=== PATIENT | female | born 1985 | race Caucasian/White ===

== ENCOUNTER 2016-09-12 04:28 | Emergency (ER) | payer MEDICAID, OTHER ==
[~2016-09-12 04:28] MED LIST: CEPH500C3 PO; DIFL500T PO; LEXA20TA PO; VENTAER INH
[2016-09-12 04:41] VITALS: BP 151/92; PULSE 85; RESP 18; TEMP 98.2; O2SAT 98
[2016-09-12 05:12] LABS: AUTOMATED NEUTROPHIL # 9.5 TH/MM3 (1.8-7.7); BASOPHIL # 0.1 TH/MM3 (0-0.2); BASOPHIL % 0.7 % (0.0-2.0); EOSINOPHIL % 0.1 % (0.0-4.0); HEMATOCRIT 42.5 % (35.0-46.0); HEMO FLAGS DIFF FINAL; LYMPH % 16.1 % (9.0-44.0); MEAN CELL VOLUME 91.8 FL (80.0-100.0); MEAN CORPUSCULAR HEMOGLOBIN 31.2 PG (27.0-34.0); MONO % 6.7 % (0.0-8.0); NEUT % 76.4 % (16.0-70.0); PLATELET COUNT 341 TH/MM3 (150-450); RED BLOOD COUNT 4.63 MIL/MM3 (4.00-5.30); RED CELL DISTRIBUTION WIDTH 13.3 % (11.6-17.2); WHITE BLOOD COUNT 12.4 TH/MM3 (4.0-11.0)
--- NOTE | 2016-09-12 05:21 | PD ---
HPI Chief Complaint: Psychiatric Symptoms Time Seen by Provider: 05:15 Travel History International Travel<30 days: No Contact w/Intl Traveler<30days: No Traveled to known affect area: No History of Present Illness HPI 31-year-old white female presents to emergency department under Aguilera act by . The patient initially had contacted PD to do a well person check on her mother. She states that she had not heard from her in some time. She is concerned because she is a diabetic. She states that she had been drinking all day. The patient states that she is unsure what had transpired but she had made a statement after arguing that she wanted to be with her father. According to the Aguilera act her father had over 10 years ago. The patient denies any suicidal ideation. No homicidal ideation. She denies any toxic ingestions. According to the Aguilera act in a discussion with the nurses there may be some substance abuse issues with the patient as well as family members. The patient here missed to marijuana but denies any other drugs. She has had a history of cutting in the past. She does suffer from depression. She is unsure of her last menstrual.. She denies any other medical complaints. [facility] Past Medical History Narrative Medical Asthma, depression, cutting Medical History: Unable to Obtain Asthma: Yes Cancer: No Diabetes: No Diminished Hearing: No Psychiatric: Yes Seizures: No Thyroid Disease: No Ulcer: No Tetanus Vaccination: > 5 Years ?: Not Past Surgical History Narrative Surgical Tonsillectomy, Surgical History: Unable to Obtain Other Surgery: No Social History Alcohol Use: Yes Tobacco Use: Yes (1/2 PPD) Substance Use: Yes (marijuana) Allergies-Medications (Allergen,Severity, Reaction): Coded Allergies: Pineapple (Verified Allergy, Severe, 09/12/16) ANAPHYLAXIS Reported Meds & Prescriptions Reported Meds & Active Scripts Active Active Prescriptions or Reported Medications Unobtainable Review of Systems Except as stated in HPI: all other systems reviewed are Neg Psychiatric: Positive: Mood Disorder, Substance Abuse, No: Anxiety, Depression , Suicidal Ideations, Disorder of Thought, Homicidal Ideation Physical Exam Narrative GENERAL: Well-nourished, well-developed patient. SKIN: Warm and dry. Old suicide gesture cutting to the wrists. HEAD: Normocephalic and atraumatic. EYES: No scleral icterus. No injection or drainage. ENT: No nasal drainage noted. Mucous membranes pink. Airway patent. NECK: Supple, trachea midline. Moves head freely without obvious discomfort. CARDIOVASCULAR: Regular rate and rhythm without murmurs, gallops, or rubs. RESPIRATORY: Breath sounds equal bilaterally. No accessory muscle use. GASTROINTESTINAL: Abdomen soft, non-tender, nondistended. EXTREMITIES: No cyanosis or edema. BACK: Nontender without obvious deformity. No CVA tenderness. NEURO: Patient is alert and oriented. no sensorimotor deficits. Nonfocal. Normal speech. PSYCH: No delusions. No auditory or visual hallucinations. Data Data Last Documented VS Vital Signs Date Time Temp Pulse Resp B/P Pulse Ox O2 Delivery O2 Flow Rate FiO2 09/12/16 04:41 98.2 85 18 151/92 98 Orders Complete Blood Count With Diff (09/12/16 04:35) Comprehensive Metabolic Panel (09/12/16 04:35) Psych Screen (09/12/16 04:35) Drug Screen, Random Urine (09/12/16 04:35) Alcohol (Ethanol) (09/12/16 04:35) Salicylates (Aspirin) (09/12/16 04:35) Tylenol (Acetaminophen) (09/12/16 04:35) Ed Urine Pregnancytest Poc (09/12/16 05:15) Labs Laboratory Tests Test 09/12/16 04:45 White Blood Count 12.4 TH/MM3 Red Blood Count 4.63 MIL/MM3 Hemoglobin 14.5 GM/DL Hematocrit 42.5 % Mean Corpuscular Volume 91.8 FL Mean Corpuscular Hemoglobin 31.2 PG Mean Corpuscular Hemoglobin 34.0 % Concent Red Cell Distribution Width 13.3 % Platelet Count 341 TH/MM3 Mean Platelet Volume 8.3 FL Neutrophils (%) (Auto) 76.4 % Lymphocytes (%) (Auto) 16.1 % Monocytes (%) (Auto) 6.7 % Eosinophils (%) (Auto) 0.1 % Basophils (%) (Auto) 0.7 % Neutrophils # (Auto) 9.5 TH/MM3 Lymphocytes # (Auto) 2.0 TH/MM3 Monocytes # (Auto) 0.8 TH/MM3 Eosinophils # (Auto) 0.0 TH/MM3 Basophils # (Auto) 0.1 TH/MM3 CBC Comment DIFF FINAL Differential Comment Sodium Level 141 MEQ/L Potassium Level 3.3 MEQ/L Chloride Level 107 MEQ/L Carbon Dioxide Level 23.1 MEQ/L Anion Gap 11 MEQ/L Blood Urea Nitrogen 8 MG/DL Creatinine 1.03 MG/DL Estimat Glomerular Filtration 63 ML/MIN Rate Random Glucose 106 MG/DL Calcium Level 8.5 MG/DL Total Bilirubin 0.5 MG/DL Aspartate Amino Transf 16 U/L (AST/SGOT) Alanine Aminotransferase 19 U/L (ALT/SGPT) Alkaline Phosphatase 58 U/L Total Protein 7.9 GM/DL Albumin 4.2 GM/DL Acetaminophen Level LESS THAN 2.0 MCG/ML Ethyl Alcohol Level LESS THAN 3 MG/DL MDM Medical Decision Making Medical Screen Exam Complete: Yes Emergency Medical Condition: Yes Medical Record Reviewed: Yes Interpretation(s) Laboratory Tests Test 09/12/16 04:45 White Blood Count 12.4 TH/MM3 Red Blood Count 4.63 MIL/MM3 Hemoglobin 14.5 GM/DL Hematocrit 42.5 % Mean Corpuscular Volume 91.8 FL Mean Corpuscular Hemoglobin 31.2 PG Mean Corpuscular Hemoglobin 34.0 % Concent Red Cell Distribution Width 13.3 % Platelet Count 341 TH/MM3 Mean Platelet Volume 8.3 FL Neutrophils (%) (Auto) 76.4 % Lymphocytes (%) (Auto) 16.1 % Monocytes (%) (Auto) 6.7 % Eosinophils (%) (Auto) 0.1 % Basophils (%) (Auto) 0.7 % Neutrophils # (Auto) 9.5 TH/MM3 Lymphocytes # (Auto) 2.0 TH/MM3 Monocytes # (Auto) 0.8 TH/MM3 Eosinophils # (Auto) 0.0 TH/MM3 Basophils # (Auto) 0.1 TH/MM3 CBC Comment DIFF FINAL Differential Comment Sodium Level 141 MEQ/L Potassium Level 3.3 MEQ/L Chloride Level 107 MEQ/L Carbon Dioxide Level 23.1 MEQ/L Anion Gap 11 MEQ/L Blood Urea Nitrogen 8 MG/DL Creatinine 1.03 MG/DL Estimat Glomerular Filtration 63 ML/MIN Rate Random Glucose 106 MG/DL Calcium Level 8.5 MG/DL Total Bilirubin 0.5 MG/DL Aspartate Amino Transf 16 U/L (AST/SGOT) Alanine Aminotransferase 19 U/L (ALT/SGPT) Alkaline Phosphatase 58 U/L Total Protein 7.9 GM/DL Albumin 4.2 GM/DL Acetaminophen Level LESS THAN 2.0 MCG/ML Ethyl Alcohol Level LESS THAN 3 MG/DL Differential Diagnosis MDM: High Differential diagnoses: Schizophrenia, schizoaffective disorder, bipolar, anxiety, depression, adjustment reaction, mood disorder NOS, ODD, depressive disorder NOS, dementia, dementia with agitation, psychosis NOS, substance induced mood disorder, intermittent explosive disorder, Asperger syndrome, infection,electrolyte abnormality, malingering. Narrative Course The patient has been medically cleared. This is medical clearance Diagnosis Primary Impression: Medical clearance for psychiatric admission Scripts Unable to Obtain Active Prescriptions or Reported Meds Condition: Tyler Lopez September 12, 2016 05:21
[2016-09-12 05:37] LABS: ANION GAP 11 MEQ/L (5-15)
[2016-09-12 05:40] LABS: ALKALINE PHOSPHATASE 58 U/L (45-117); ALT (GPT) 19 U/L (10-53); AST (GOT) 16 U/L (15-37); BICARBONATE 23.1 MEQ/L (21.0-32.0); BLOOD UREA NITROGEN 8 MG/DL (7-18); CHLORIDE 107 MEQ/L (98-107); GLOMERULAR FILTRATION RATE 63 ML/MIN (>89); POTASSIUM 3.3 MEQ/L (3.5-5.1); SODIUM (NA) 141 MEQ/L (136-145); TOTAL BILIRUBIN ADULT 0.5 MG/DL (0.2-1.0)
[2016-09-12 05:42] LABS: ACETAMINOPHEN LESS THAN 2.0 MCG/ML (10.0-30.0)
[2016-09-12 06:00] VITALS: BP 131/76; PULSE 85; RESP 18; O2SAT 98
[2016-09-12 10:11] VITALS: BP 120/72; PULSE 68; TEMP 97.6; O2SAT 98
[2016-09-12 12:32] LABS: AMPHETAMINE, URINE NEG (NEG); BARBITURATES, URINE NEG (NEG); COCAINE, URINE POS (NEG)
[2016-09-12] MEDS ORDERED: NICOTINE 14 MG/24 HR PATCH T-DERMAL ONE (13:30)
--- NOTE | 2016-09-12 15:05 | PD ---
History of Present Illness Chief Complaint: Psychiatric Symptoms Time Seen by Provider: 15:00 Travel History International Travel<30 Days: No Contact w/Intl Traveler<30days: No Known affected area: No Legal Status Legal Status: Aguilera Act Aguilera Act Signed By: Marco Antonio Aguilera Act Comment: BA signed by: ALEXANDER FORRESTER Badge#[id number], case#[id number] History of Present Illness: 31-year-old female who presents with drug intoxication, including cocaine, Aguilera acted by law enforcement. Patient states she called law enforcement to check on her mother. Patient states that she and her mother have a up-and-down relationship. Mother told law enforcement the patient has a drug problem. At this time the patient is no longer intoxicated. She is calm and pleasant and cooperative. No psychotic symptoms. No suicidal or homicidal ideation, plan or intent. Cognition intact. Patient verbally yonatan for safety. PFSH Past Medical History Medical History: Denies Significant Hx Asthma: Yes Cancer: No Diabetes: No Diminished Hearing: No Psychiatric: Yes Seizures: No Thyroid Disease: No Ulcer: No Tetanus Vaccination: > 5 Years ?: Not Past Surgical History Surgical History: Unable to Obtain Other Surgery: No Psychiatric History Psychiatric History Hx Psychiatric Treatment: Admits to a hx of depression when she was 19y/o History of Inpatient Treatment: Yes Social History Hx Alcohol Use: Yes Hx Tobacco Use: Yes (1/2 PPD) Hx Substance Use: No (Denies) Substance Use Type: Alcohol Other Substances Used: admits to drinking etoh and smoking marijuana Hx of Substance Use Treatment: No Allergies-Medications (Allergen,Severity, Reaction): Coded Allergies: Pineapple (Verified Allergy, Severe, 09/12/16) ANAPHYLAXIS Reported Meds & Prescriptions Reported Meds & Active Scripts Active Active Prescriptions or Reported Medications Unobtainable Review of Systems Except as stated in HPI: all other systems reviewed are Neg Exam Alert: Yes Loc[place] Gap: Person, Place, Date, Situation Mood: Calm Affect: Appropriate Speech: Clear, Logical Eye Contact: Normal Memory Intact: Immediate, Recent, Remote Insight/Judgement Adequate except for drug use. MDM Medical Decision Making Medical Record Reviewed: Yes Assessment/Plan Aguilera act lifted and patient being discharged home. She does not meet civil commitment criteria or inpatient psychiatric hospitalization criteria. She was asked to the cyst from drug abuse and to attend NA meetings. Orders Complete Blood Count With Diff (09/12/16 04:35) Comprehensive Metabolic Panel (09/12/16 04:35) Psych Screen (09/12/16 04:35) Drug Screen, Random Urine (09/12/16 04:35) Alcohol (Ethanol) (09/12/16 04:35) Salicylates (Aspirin) (09/12/16 04:35) Tylenol (Acetaminophen) (09/12/16 04:35) Ed Urine Pregnancytest Poc (09/12/16 05:15) Nicotine 14 Mg Patch.24 Hr (Habitrol 14 (09/12/16 13:30) Diet Regular Basic (09/12/16 Dinner) Results Vital Signs Date Time Temp Pulse Resp B/P Pulse Ox O2 Delivery O2 Flow Rate FiO2 09/12/16 10:11 97.6 68 120/72 98 09/12/16 06:00 85 18 131/76 98 Room Air 09/12/16 04:41 98.2 85 18 151/92 98 Laboratory Tests Test 09/12/16 09/12/16 04:45 11:50 White Blood Count 12.4 Red Blood Count 4.63 Hemoglobin 14.5 Hematocrit 42.5 Mean Corpuscular Volume 91.8 Mean Corpuscular Hemoglobin 31.2 Mean Corpuscular Hemoglobin 34.0 Concent Red Cell Distribution Width 13.3 Platelet Count 341 Mean Platelet Volume 8.3 Neutrophils (%) (Auto) 76.4 Lymphocytes (%) (Auto) 16.1 Monocytes (%) (Auto) 6.7 Eosinophils (%) (Auto) 0.1 Basophils (%) (Auto) 0.7 Neutrophils # (Auto) 9.5 Lymphocytes # (Auto) 2.0 Monocytes # (Auto) 0.8 Eosinophils # (Auto) 0.0 Basophils # (Auto) 0.1 CBC Comment DIFF FINAL Differential Comment Sodium Level 141 Potassium Level 3.3 Chloride Level 107 Carbon Dioxide Level 23.1 Anion Gap 11 Blood Urea Nitrogen 8 Creatinine 1.03 Estimat Glomerular Filtration 63 Rate Random Glucose 106 Calcium Level 8.5 Total Bilirubin 0.5 Aspartate Amino Transf 16 (AST/SGOT) Alanine Aminotransferase 19 (ALT/SGPT) Alkaline Phosphatase 58 Total Protein 7.9 Albumin 4.2 Acetaminophen Level LESS THAN 2.0 Ethyl Alcohol Level LESS THAN 3 Urine Opiates Screen NEG Urine Barbiturates Screen NEG Urine Amphetamines Screen NEG Urine Benzodiazepines Screen NEG Urine Cocaine Screen POS Urine Cannabinoids Screen POS Diagnosis Primary Impression: Medical clearance for psychiatric admission Additional Impression: Cocaine abuse Prescriptions Unable to Obtain Active Prescriptions or Reported Meds Condition: Stable Problem Qualifiers Abdiel Trinidad MD September 12, 2016 15:05
== END 2016-09-12 16:45 | disposition home or self-care (01) ==
LOC: NEPD 04:28 → NEPJ 16:45
DX: F14.920 Cocaine use, unspecified with intoxication, uncomplicated (principal); F17.210 Nicotine dependence, cigarettes, uncomplicated; F32.9 Major depressive disorder, single episode, unspecified; F12.90 Cannabis use, unspecified, uncomplicated; F10.10 Alcohol abuse, uncomplicated
CPT/HCPCS: 80053; 80307; 85025; 99284

== ENCOUNTER 2016-10-26 22:17 | Emergency (ER) | payer MEDICAID, OTHER ==
[~2016-10-26] VITALS: Ht 157.5 cm; Wt 62.0 kg
[2016-10-26 22:30] VITALS: BP 118/75; PULSE 77; RESP 17; TEMP 98.9; O2SAT 99
--- NOTE | 2016-10-26 23:05 | PD ---
HPI Chief Complaint: Psychiatric Symptoms Time Seen by Provider: 22:41 Travel History International Travel<30 days: No Contact w/Intl Traveler<30days: No Traveled to known affect area: No History of Present Illness HPI This is a 31-year-old female who has a history of cocaine abuse who presents to the emergency department having been brought in under a Aguilera act by the police because she got in an argument with her family and they're concerned about her well-being because she disappeared into the cartwright for 4 days. She says she was just going camping and wanted to clear her head because thinking about getting a divorce. She says she doesn't use cocaine "that much". She does acknowledge using cocaine 2 days ago. Her family is concerned that she disappeared and the cartwright and was using drugs. She currently denies any thoughts of hurting herself or others but she does have a history of depression in the past per her. PFSH Past Medical History Asthma: Yes Cancer: No Diabetes: No Diminished Hearing: No Psychiatric: Yes Seizures: No Thyroid Disease: No Ulcer: No ?: Unknown Past Surgical History Abdominal Surgery: Yes Tonsillectomy: Yes Other Surgery: Yes (l wrist) Social History Alcohol Use: Yes Tobacco Use: Yes (1/2 PPD) Substance Use: Yes (marijuana/cocaine) Allergies-Medications (Allergen,Severity, Reaction): Coded Allergies: Pineapple (Verified Allergy, Severe, 10/26/16) ANAPHYLAXIS Reported Meds & Prescriptions Reported Meds & Active Scripts Active No Active Prescriptions or Reported Medications Review of Systems Except as stated in HPI: all other systems reviewed are Neg Physical Exam Narrative GENERAL:Well appearing, no acute distress SKIN: Focused skin assessment warm and dry. HEAD: Atraumatic. Normocephalic. EYES: Pupils equal and round. No injection or drainage. ENT: Moist mucous membranes NECK: Trachea midline. CARDIOVASCULAR: Regular rate and rhythm. No murmur appreciated. RESPIRATORY: Clear to auscultation. Breath sounds equal bilaterally. GASTROINTESTINAL: Abdomen soft, non-tender, nondistended. MUSCULOSKELETAL: No obvious deformities. NEUROLOGICAL: Awake and alert. No obvious cranial nerve deficits. Moving all extremities. PSYCHIATRIC: Appropriate mood and affect; insight and judgment normal. Data Data Last Documented VS Vital Signs Date Time Temp Pulse Resp B/P Pulse Ox O2 Delivery O2 Flow Rate FiO2 10/26/16 22:40 17 10/26/16 22:30 98.9 77 118/75 99 Orders Complete Blood Count With Diff (10/26/16 22:47) Basic Metabolic Panel (Bmp) (10/26/16 22:47) Drug Screen, Random Urine (10/26/16 22:47) Ed Urine Pregnancytest Poc (10/26/16 22:47) Alcohol (Ethanol) (10/26/16 22:47) Nicotine 14 Mg Patch.24 Hr (Habitrol 14 (10/26/16 23:30) Urinalysis - C+S If Indicated (10/26/16 23:52) Urine Culture (10/26/16 22:57) Labs Laboratory Tests Test 10/26/16 10/26/16 22:51 22:57 White Blood Count 16.4 TH/MM3 Red Blood Count 4.86 MIL/MM3 Hemoglobin 15.2 GM/DL Hematocrit 45.1 % Mean Corpuscular Volume 92.9 FL Mean Corpuscular Hemoglobin 31.3 PG Mean Corpuscular Hemoglobin 33.7 % Concent Red Cell Distribution Width 13.8 % Platelet Count 385 TH/MM3 Mean Platelet Volume 8.2 FL Neutrophils (%) (Auto) 69.9 % Lymphocytes (%) (Auto) 20.7 % Monocytes (%) (Auto) 8.5 % Eosinophils (%) (Auto) 0.2 % Basophils (%) (Auto) 0.7 % Neutrophils # (Auto) 11.4 TH/MM3 Lymphocytes # (Auto) 3.4 TH/MM3 Monocytes # (Auto) 1.4 TH/MM3 Eosinophils # (Auto) 0.0 TH/MM3 Basophils # (Auto) 0.1 TH/MM3 CBC Comment DIFF FINAL Differential Comment Sodium Level 140 MEQ/L Potassium Level 3.6 MEQ/L Chloride Level 107 MEQ/L Carbon Dioxide Level 25.0 MEQ/L Anion Gap 8 MEQ/L Blood Urea Nitrogen 9 MG/DL Creatinine 0.90 MG/DL Estimat Glomerular Filtration 74 ML/MIN Rate Random Glucose 84 MG/DL Calcium Level 9.3 MG/DL Ethyl Alcohol Level LESS THAN 3 MG/DL Urine Opiates Screen NEG Urine Barbiturates Screen NEG Urine Amphetamines Screen NEG Urine Benzodiazepines Screen NEG Urine Cocaine Screen POS Urine Cannabinoids Screen POS Urine Color YELLOW Urine Turbidity HAZY Urine pH 6.0 Urine Specific [place] 1.016 Urine Protein 100 mg/dL Urine Glucose (UA) NEG mg/dL Urine Ketones NEG mg/dL Urine Occult Blood NEG Urine Nitrite NEG Urine Bilirubin NEG Urine Urobilinogen LESS THAN 2.0 MG/DL Urine Leukocyte Esterase NEG Urine RBC 2 /hpf Urine WBC 6 /hpf Urine Squamous Epithelial 9 /hpf Cells Urine Amorphous Sediment RARE Urine Bacteria MOD /hpf Urine Hyaline Casts 25 /lpf Urine Granular Casts 1 /lpf Urine Mucus MOD /lpf Microscopic Urinalysis Comment CULTURE INDICATED MDM Medical Decision Making Medical Screen Exam Complete: Yes Emergency Medical Condition: Yes Interpretation(s) Afebrile, no tachycardia, normotensive Leukocytosis Electrolytes are reassuring Urinalysis: Some white blood cells and moderate bacteria Urine drug screen is positive for cocaine and cannabinoid Differential Diagnosis Drug intoxication, alcohol intoxication, electrolyte abnormality, depression, bipolar disorder Narrative Course This is a 31-year-old female who was brought in under a Aguilera act because she was evidently being violent with her family and evidently disappeared for 4 days into the cartwright. Patient seems to have some impaired judgment and insight. Labs were obtained which demonstrate a leukocytosis and she does a urinary tract infection. She was started on Macrobid. Otherwise I think she is medically cleared for psychiatry evaluation. Diagnosis Primary Impression: Urinary tract infection Qualified Code: N30.00 - Acute cystitis without hematuria Patient Instructions: General Instructions Additional Instructions: If you develop fever, persistent vomiting, back pain, or inability to eat return to the emergency department as your urine infection may have progressed to a kidney infection. Complete your antibiotics as prescribed. Stay well hydrated with Gatorade or water. Followup with your primary care physician in 2-3 days if your symptoms have not resolved. Med/Other Pt SpecificInfo: Prescription(s) given Scripts Nitrofurantoin Monohydrate Macrocrystals (Macrobid)100 Mg [id number] Mg PO BID 7 Days Ref 0 Prov:Daxa Lock MD 10/27/16 Disposition: 01 DISCHARGE HOME Condition: Stable Daxa Lock MD Oct 26, 2016 23:05
[2016-10-26 23:13] LABS: AMPHETAMINE, URINE NEG (NEG); BARBITURATES, URINE NEG (NEG); COCAINE, URINE POS (NEG)
[2016-10-26 23:20] LABS: AUTOMATED NEUTROPHIL # 11.4 TH/MM3 (1.8-7.7); BASOPHIL # 0.1 TH/MM3 (0-0.2); BASOPHIL % 0.7 % (0.0-2.0); EOSINOPHIL % 0.2 % (0.0-4.0); HEMATOCRIT 45.1 % (35.0-46.0); HEMO FLAGS DIFF FINAL; LYMPH % 20.7 % (9.0-44.0); LYMPHOCYTE # 3.4 TH/MM3 (1.0-4.8); MEAN CELL VOLUME 92.9 FL (80.0-100.0); MEAN CORPUSCULAR HEMOGLOBIN 31.3 PG (27.0-34.0); MEAN CORPUSCULAR HGB CONC 33.7 % (32.0-36.0); MONO % 8.5 % (0.0-8.0); NEUT % 69.9 % (16.0-70.0); PLATELET COUNT 385 TH/MM3 (150-450); RED BLOOD COUNT 4.86 MIL/MM3 (4.00-5.30); RED CELL DISTRIBUTION WIDTH 13.8 % (11.6-17.2); WHITE BLOOD COUNT 16.4 TH/MM3 (4.0-11.0)
[2016-10-26] MEDS ORDERED: NICOTINE 14 MG/24 HR PATCH T-DERMAL ONE (23:30)
[2016-10-26 23:36] LABS: ANION GAP 8 MEQ/L (5-15); BLOOD UREA NITROGEN 9 MG/DL (7-18); CHLORIDE 107 MEQ/L (98-107); GLOMERULAR FILTRATION RATE 74 ML/MIN (>89); POTASSIUM 3.6 MEQ/L (3.5-5.1); SODIUM (NA) 140 MEQ/L (136-145)
[2016-10-27 00:18] LABS: BACTERIA, URINE MOD /hpf; BLOOD, URINE NEG (NEG); COMMENT (UR) CULTURE INDICATED; CULTURE IF INDICATED CULTURE INDICATED; GLUCOSE,URINE NEG (NEG); GRANULAR CAST, URINE 1 /lpf; HYALINE CAST, URINE 25 /lpf (RARE); KETONE, URINE NEG (NEG); MUCUS URINE MOD /lpf (OCC); NITRITE,URINE NEG (NEG); SQUAMOUS EPITHELIAL CELL URINE 9 /hpf (0-5); URINE COLOR YELLOW (YELLW/STRAW)
[2016-10-27] MEDS ORDERED: MACR100C2 PO (00:25)
[2016-10-27] MEDS: NITROFURANTOIN MONOHYD MACROCR 100 MG CAP PO SCH ×2 (00:40→09:00)
[2016-10-27 01:26] VITALS: BP 111/71; PULSE 77; RESP 18; O2SAT 100
[2016-10-27 02:16] VITALS: BP 102/51; PULSE 63; RESP 18; TEMP 97.5; O2SAT 100
[2016-10-27 06:00] VITALS: BP 116/67; PULSE 61; RESP 18; TEMP 95.9; O2SAT 100
[2016-10-27 11:46] VITALS: BP 110/60; PULSE 81; RESP 16; O2SAT 100
--- NOTE | 2016-10-27 14:20 | PD ---
History of Present Illness Chief Complaint: Psychiatric Symptoms Time Seen by Provider: 14:00 Travel History International Travel<30 Days: No Contact w/Intl Traveler<30days: No Known affected area: No Legal Status Legal Status: Aguilera Act Aguilera Act Signed By: Marco Antonio Sage Aguilera Act Comment: 2016 @ 0930PM History of Present Illness: History of Present Illness HPI This is a 31-year-old female with a history of cocaine abuse who presents to the emergency department under a Aguilera act initiated by ALEXANDER . The BA alleges that patient came home today and was acting abnormal and irate towards them. Patient had returned from a 4 day camping trip and family suspects that she was under the influence of cocaine. The patient never verbalized any intent to hurt herself or any one else. EMR is reviewed. Patient has one previous admission to [facility] in 2003. She was also placed under a BA in september 2016 after she was intoxicated and believed that her mother was hurt. Current toxicology is positive for cocaine and cannabinoid. Patient is seen in J pod. She is alert and oriented and is clinically sober now. Speech is cler and logical. There is no psychosis and no marcos. There is no significant depression or anxiety. She denies any suicidal or homicidals ideation. she minimizes her substance use. She plans on moving to another apartment and her will leave the home for a few days. PFSH Past Medical History Asthma: Yes Cancer: No Diabetes: No Diminished Hearing: No Psychiatric: Yes Seizures: No Thyroid Disease: No Ulcer: No ?: Unknown Past Surgical History Abdominal Surgery: Yes Tonsillectomy: Yes Other Surgery: Yes (l wrist) Psychiatric History Psychiatric History Hx Psychiatric Treatment: DENIES any tretametn History of Inpatient Treatment: Yes ([facility] at age 18 yeras old) Social History Hx Alcohol Use: Yes Hx Tobacco Use: Yes (1/2 PPD) Hx Substance Use: Yes (marijuana/cocaine) Substance Use Type: Alcohol, Marijuana, Cocaine Other Substances Used: admits to drinking etoh and smoking marijuana Hx of Substance Use Treatment: No Family Psychiatric History Negative Allergies-Medications (Allergen,Severity, Reaction): Coded Allergies: Pineapple (Verified Allergy, Severe, 10/26/16) ANAPHYLAXIS Reported Meds & Prescriptions Reported Meds & Active Scripts Active Macrobid (Nitrofurantoin Monoh/Nitrofur Macro) 100 Mg Cap 100 Mg PO BID 7 Days Review of Systems Except as stated in HPI: all other systems reviewed are Neg Immunologic/allergic: COMPLAINS OF: Urticaria (bites on her back) Psychiatric: DENIES: Anxiety, Confusion, Mood changes, Depression, Hallucinations, Agitation, Suicidal Ideation, Homicidal Ideation, Delusions Exam Alert: Yes [place]: Person (ox4) Affect: Appropriate Speech: Clear, Logical Eye Contact: Normal Memory Intact: Comment (no impairmetn) Hallucinations: Other (negative) Delusions: No Suicidal: Ideation (deneis any) Homicidal: Ideation (deneis any) Insight/Judgement Poor. Not impaired. MDM Medical Decision Making Medical Record Reviewed: Yes Assessment/Plan 31 year old female with primary dx of cocaine abuse who is under a BA. the patient presents no psychiatric symptoms, no suicidality or homicidality.She is clear from substance now and does not meet criteria for BA. She minimizes her use of cocaine. I have lifted the BA. Psychoeducation provided. Discharge to self. Recommend abstinence. Orders Complete Blood Count With Diff (10/26/16 22:47) Basic Metabolic Panel (Bmp) (10/26/16 22:47) Drug Screen, Random Urine (10/26/16 22:47) Ed Urine Pregnancytest Poc (10/26/16 22:47) Alcohol (Ethanol) (10/26/16 22:47) Nicotine 14 Mg Patch.24 Hr (Habitrol 14 (10/26/16 23:30) Urinalysis - C+S If Indicated (10/26/16 23:52) Urine Culture (10/26/16 22:57) Nitrofurantoin Monohyd Macrocr (Macrobid (10/27/16 00:30) Psych Screen (10/27/16 01:19) Diet Regular Basic (10/27/16 Breakfast) Diet Regular Basic (10/27/16 Lunch) Results Vital Signs Date Time Temp Pulse Resp B/P Pulse Ox O2 Delivery O2 Flow Rate FiO2 10/27/16 11:46 81 16 110/60 100 Room Air 10/27/16 06:00 95.9 61 18 116/67 100 10/27/16 02:16 97.5 63 18 102/51 100 10/27/16 01:26 77 18 111/71 100 10/26/16 22:40 17 10/26/16 22:30 98.9 77 17 118/75 99 Laboratory Tests Test 10/26/16 10/26/16 22:51 22:57 White Blood Count 16.4 Red Blood Count 4.86 Hemoglobin 15.2 Hematocrit 45.1 Mean Corpuscular Volume 92.9 Mean Corpuscular Hemoglobin 31.3 Mean Corpuscular Hemoglobin 33.7 Concent Red Cell Distribution Width 13.8 Platelet Count 385 Mean Platelet Volume 8.2 Neutrophils (%) (Auto) 69.9 Lymphocytes (%) (Auto) 20.7 Monocytes (%) (Auto) 8.5 Eosinophils (%) (Auto) 0.2 Basophils (%) (Auto) 0.7 Neutrophils # (Auto) 11.4 Lymphocytes # (Auto) 3.4 Monocytes # (Auto) 1.4 Eosinophils # (Auto) 0.0 Basophils # (Auto) 0.1 CBC Comment DIFF FINAL Differential Comment Sodium Level 140 Potassium Level 3.6 Chloride Level 107 Carbon Dioxide Level 25.0 Anion Gap 8 Blood Urea Nitrogen 9 Creatinine 0.90 Estimat Glomerular Filtration 74 Rate Random Glucose 84 Calcium Level 9.3 Ethyl Alcohol Level LESS THAN 3 Urine Opiates Screen NEG Urine Barbiturates Screen NEG Urine Amphetamines Screen NEG Urine Benzodiazepines Screen NEG Urine Cocaine Screen POS Urine Cannabinoids Screen POS Urine Color YELLOW Urine Turbidity HAZY Urine pH 6.0 Urine Specific [place] 1.016 Urine Protein 100 Urine Glucose (UA) NEG Urine Ketones NEG Urine Occult Blood NEG Urine Nitrite NEG Urine Bilirubin NEG Urine Urobilinogen LESS THAN 2.0 Urine Leukocyte Esterase NEG Urine RBC 2 Urine WBC 6 Urine Squamous Epithelial 9 Cells Urine Amorphous Sediment RARE Urine Bacteria MOD Urine Hyaline Casts 25 Urine Granular Casts 1 Urine Mucus MOD Microscopic Urinalysis Comment CULTURE INDICATED Date/Time Procedure Status Source Growth 10/26/16 22:57 Urine Culture - Preliminary Resulted Urine Clean Catch RESULTS PENDING Diagnosis Primary Impression: Urinary tract infection Additional Impression: Cocaine abuse Psychiatrically Cleared: Yes Patient Instructions: General Instructions Additional Instructions: If you develop fever, persistent vomiting, back pain, or inability to eat return to the emergency department as your urine infection may have progressed to a kidney infection. Complete your antibiotics as prescribed. Stay well hydrated with Gatorade or water. Followup with your primary care physician in 2-3 days if your symptoms have not resolved. Prescriptions Nitrofurantoin Monohydrate Macrocrystals (Macrobid)100 Mg [id number] Mg PO BID 7 Days Ref 0 Prov:Daxa Lock MD 10/27/16 Disposition: 01 DISCHARGE HOME Condition: Stable Problem Qualifiers Primary Impression: Urinary tract infection Qualified Code: N30.00 - Acute cystitis without hematuria Margaret Galvez Oct 27, 2016 14:19
[2016-10-27 14:28] VITALS: BP 110/60; PULSE 81; RESP 16; O2SAT 100
== END 2016-10-27 19:31 | disposition home or self-care (01) ==
LOC: NEPD 22:17 → NEPJ 10-27 19:31
DX: N39.0 Urinary tract infection, site not specified (principal); F14.10 Cocaine abuse, uncomplicated; J45.909 Unspecified asthma, uncomplicated; F17.200 Nicotine dependence, unspecified, uncomplicated
CPT/HCPCS: 80048; 80307; 81001; 84703; 85025; 87086; 99284

== ENCOUNTER 2017-12-25 10:42 | Observation (INO) ==
--- NOTE | 2017-12-25 11:42 | ED ---
HPI General Chief Complaint: Medical Clearance Stated Complaint: Psych eval / med clearance / VCSO Time Seen by Provider: 12/25/17 11:17 Source: patient Mode of arrival: ambulatory Limitations: altered mental status History of Present Illness HPI Narrative: Patient is lethargic and arouses to noxious stimuli. 32-year- old female arrives via EMS under Aguilera act. According to the Aguilera act report the deputy observed the patient was unable to stand up without assistance, hold her head up, and keep her eyes open. The patient stated she saw no point in trying because she was just going to end up back in long-term and wanted to kill herself. The patient advised the officer that she had taken 12 Xanax. According to the triage note the patient had admitted to taking 12 Xanax, 2 oxycodone, 40 beers in the past 12-24 hours. On my examination the patient denies suicidal ideation. She says that she was just "caught up in the moment. " Denies that this was an attempt to harm herself. Denies homicidal ideations. Tells me that she is also taking Suboxone. Denies chest pain, shortness of breath, abdominal pain, nausea, vomiting. Symptoms are moderate to severe in severity. Aggravated by toxic ingestion. No known relieving factors. No treatments tried. Onset unknown. Duration unknown. According to the medical record the patient has history of colitis, heart attack, asthma. She reports history of low blood pressure. Allergies to pineapple. Has no other medical complaints. No other modifying factors or associated signs and symptoms. Related Data Previous Rx's Medication Instructions Recorded famotidine 10 mg PO BID #60 tab 12/26/17 nicotine 1 patch TRANSDERMAL DAILY #7 ea 12/26/17 Allergies Allergy/AdvReac Type Severity Reaction Status Date / Time pineapple Allergy Severe Anaphylaxis Verified 12/25/17 11:56 Review of Systems ROS: all other systems reviewed are negative [facility] Medical History Medical History Asthma (Acute) delivery delivered (Acute) Colitis (Acute) Heart attack (Acute) Family History Family History Other Osteoarthritis Social History Social History Substance History: Active Abuse Second Hand Smoke Exposure: Yes Smoking Status: Current every day smoker Tobacco Type: Cigarettes How Often Do You Have a Drink Containing Alcohol: 2 to 3 times a week Substance Abuse Detail Marijuana: Substance Use Status: Early Remission Route Used Substance Abuse: Inhalation Crack/Cocaine: Substance Use Status: Early Remission Immunization History Tetanus Immunization: <5 Years Exam Narrative Exam Narrative: GENERAL: Well-nourished, well-developed female patient , in no acute distress; lethargic and arouses to noxious stimuli SKIN: Warm and dry. HEAD: Atraumatic. Normocephalic. EYES: Pupils equal and round at 5 mm with brisk reaction. PERRLA. ENT: Mucosa pink and moist. NECK: Supple. Trachea midline. CARDIOVASCULAR: Regular rate and rhythm. No murmur appreciated. RESPIRATORY: No accessory muscle use. Clear to auscultation. Breath sounds equal bilaterally. GASTROINTESTINAL: Abdomen soft, non-tender, nondistended. Hepatic and splenic margins not palpable. Bowel sounds are active 4 quadrants. MUSCULOSKELETAL: No obvious deformities. No clubbing. No cyanosis. No edema. BACK: No CVA tenderness. NEUROLOGICAL: Lethargic. Arouses to noxious stimuli. No obvious cranial nerve deficits. Motor grossly within normal limits. Slurred speech. Moves all extremities. 5/5 strength to all extremities. PSYCHIATRIC: No delusional thought processes. No hallucinations. Course Initial Documented Vital Signs Temperature 98.2 F 12/25/17 10:50 Pulse Rate 93 H 12/25/17 10:50 Respiratory Rate 14 12/25/17 10:50 Blood Pressure 118/86 12/25/17 10:50 Pulse Oximetry 100 12/25/17 10:50 Last Documented Vital Signs Temperature 98.5 F 12/26/17 16:00 Pulse Rate 68 12/26/17 16:00 Respiratory Rate 18 12/26/17 16:00 Blood Pressure 115/67 12/26/17 16:00 Pulse Oximetry 100 12/26/17 16:00 Medical Decision Making SARAH Attestation SARAH supervised visit: Yes Attestation: I, Dr. Rouse, have reviewed the advance practice practitioner's documentation and am in agreement, met with the patient face to face, made the diagnosis, and the medical decision making was done by me. *My assessment and Findings: I evaluated this patient. The nurse was with me. She is 4-1/2 hours later still slurring words and groggy and altered from her overdose. She is hypotensive without tachycardia consistent with narcotic overdose. Going to place a second IV and give her 2 L of saline and attempt Santo catheter placement to monitor urine output with the patient is fairly uncooperative and likely will be to resistive to get this done. She will require medical admission. Psychiatry will be consulted. Hopefully we can get her pressure up a bit and not require intensive care or pressor support. I think her hypotension will gradually resolve as her body metabolizes the narcotics MDM Narrative Medical decision making narrative: Patient presents under a Aguilera act. Physical examination and vital signs are essentially unremarkable. Patient has no medical complaints to report. Psych screen has been ordered. If the laboratory results are unremarkable, the patient will be medically cleared for psychiatric evaluation and disposition. 1521: Patient BP 85/53. Dr. Rouse evaluated the patient and recommended 2 L NS bolus and insert Santo to monitor urine output. Orders entered. 1620: BP 93/52. Call placed for patient admission. I talked with PARAM West and report given for patient admission. Medical Screen Exam Complete: Yes Emergency Medical Condition: Yes Differential Diagnosis Differential Diagnosis: Drug overdose, benzodiazepine abuse, alcohol abuse, suicidal intent, medical clearance for psychiatric evaluation Lab Data Result diagrams: 12/26/17 04:07 12/26/17 04:07 POC Results POC Urine Results Negative Lab Results 12/25/17 12/25/17 12/25/17 Range/Units 11:51 11:51 11:51 WBC 8.4 (4.0-11.0) th/mm3 RBC 4.13 (4.00-5.30) mil/mm3 Hgb 13.5 (11.6-15.3) gm/dL Hct 38.5 (35.0-46.0) % MCV 93.2 (80.0-100.0) fL MCH 32.8 (27.0-34.0) pg MCHC 35.2 (32.0-36.0) % RDW 12.5 (11.6-17.2) % Plt Count 291 (150-450) th/mm3 MPV 8.4 (7.0-11.0) fL Neut % (Auto) 54.7 (16.0-70.0) % Lymph % (Auto) 33.8 (9.0-44.0) % [place] % (Auto) 9.7 H (0.0-8.0) % Eos % (Auto) 0.8 (0.0-4.0) % Baso % (Auto) 1.0 (0.0-2.0) % Neut # (Auto) 4.6 (1.8-7.7) th/mm3 Lymph # (Auto) 2.8 (1.0-4.8) th/mm3 [place] # (Auto) 0.8 (0.0-0.9) th/mm3 Eos # (Auto) 0.1 (0.0-0.4) th/mm3 Baso # (Auto) 0.1 (0.0-0.2) th/mm3 WBC Differential . Differential Comment Auto diff final Sodium 139 (136-145) meq/L Potassium 3.1 L (3.5-5.1) meq/L Chloride 104 (98-107) meq/L Carbon Dioxide 22.0 (21.0-32.0) meq/L Anion Gap 13 (5-15) meq/L BUN 13 (7-18) mg/dL Creatinine 0.59 (0.50-1.00) mg/dL Estimated GFR Greater than 89 (>89) mL/min Random Glucose 96 (74-106) mg/dL Calcium 9.0 (8.5-10.1) mg/dL Total Bilirubin 1.2 H (0.2-1.0) mg/dL AST 20 (15-37) U/L ALT 26 (10-53) U/L Alkaline Phosphatase 46 (45-117) U/L Total Protein 8.0 (6.4-8.2) g/dL Albumin 4.6 (3.4-5.0) g/dL TSH 0.960 (0.358-3.740) uIU/mL Urine Color (Yellw/Straw) Urine Clarity (Clear) Urine pH (5.0-8.5) Ur Specific [place] (1.002-1.035) Urine Protein (Neg-Trace) mg/dL Urine Glucose (UA) (Negative) mg/dL Urine Ketones (Negative) mg/dL Urine Occult Blood (Negative) Urine Nitrate (Negative) Urine Bilirubin (Negative) Urine Urobilinogen (Less than 2) mg/dL Ur Leukocyte Esterase (Negative) Urine RBC (0-3) /hpf Urine WBC (0-5) /hpf Ur Squamous Epith Cells (0-5) /hpf Urine Bacteria (None) /hpf Urine Mucus (Occasional) /lpf Micro UA Comment Ur Microscopic Review Urine Culture Comments Salicylates 2.4 L (2.8-20.0) mg/dL Urine Opiates Screen (Neg) Acetaminophen Less than 2.0 L (10.0-30.0) mcg/mL Ur Barbiturates Screen (Neg) Ur Amphetamines Screen (Neg) U Benzodiazepines Scrn (Neg) Urine Cocaine Screen (Neg) U Cannabinoids Screen (Neg) Serum Alcohol Less than 3 (0-5) mg/dL 12/25/17 12/25/17 12/26/17 Range/Units 11:51 11:51 04:07 WBC 6.9 (4.0-11.0) th/mm3 RBC 3.58 L (4.00-5.30) mil/mm3 Hgb 11.6 (11.6-15.3) gm/dL Hct 34.3 L (35.0-46.0) % MCV 95.9 (80.0-100.0) fL MCH 32.5 (27.0-34.0) pg MCHC 33.9 (32.0-36.0) % RDW 12.4 (11.6-17.2) % Plt Count 215 (150-450) th/mm3 MPV 7.9 (7.0-11.0) fL Neut % (Auto) 39.1 (16.0-70.0) % Lymph % (Auto) 49.2 H (9.0-44.0) % [place] % (Auto) 8.6 H (0.0-8.0) % Eos % (Auto) 2.1 (0.0-4.0) % Baso % (Auto) 1.0 (0.0-2.0) % Neut # (Auto) 2.7 (1.8-7.7) th/mm3 Lymph # (Auto) 3.4 (1.0-4.8) th/mm3 [place] # (Auto) 0.6 (0.0-0.9) th/mm3 Eos # (Auto) 0.1 (0.0-0.4) th/mm3 Baso # (Auto) 0.1 (0.0-0.2) th/mm3 WBC Differential . Differential Comment Auto diff final Sodium (136-145) meq/L Potassium (3.5-5.1) meq/L Chloride (98-107) meq/L Carbon Dioxide (21.0-32.0) meq/L Anion Gap (5-15) meq/L BUN (7-18) mg/dL Creatinine (0.50-1.00) mg/dL Estimated GFR (>89) mL/min Random Glucose (74-106) mg/dL Calcium (8.5-10.1) mg/dL Total Bilirubin (0.2-1.0) mg/dL AST (15-37) U/L ALT (10-53) U/L Alkaline Phosphatase (45-117) U/L Total Protein (6.4-8.2) g/dL Albumin (3.4-5.0) g/dL TSH (0.358-3.740) uIU/mL Urine Color Yellow (Yellw/Straw) Urine Clarity Cloudy H (Clear) Urine pH 6.0 (5.0-8.5) Ur Specific [place] 1.016 (1.002-1.035) Urine Protein Negative (Neg-Trace) mg/dL Urine Glucose (UA) Negative (Negative) mg/dL Urine Ketones Trace H (Negative) mg/dL Urine Occult Blood Small H (Negative) Urine Nitrate Negative (Negative) Urine Bilirubin Negative (Negative) Urine Urobilinogen 4 or greater (Less than 2) mg/dL Ur Leukocyte Esterase Trace H (Negative) Urine RBC 2 (0-3) /hpf Urine WBC 2 (0-5) /hpf Ur Squamous Epith Cells 130 (0-5) /hpf Urine Bacteria Occasional H (None) /hpf Urine Mucus Few H (Occasional) /lpf Micro UA Comment Culture not ind Ur Microscopic Review Not Reportable Urine Culture Comments Culture not ind Salicylates (2.8-20.0) mg/dL Urine Opiates Screen Neg (Neg) Acetaminophen (10.0-30.0) mcg/mL Ur Barbiturates Screen Neg (Neg) Ur Amphetamines Screen Neg (Neg) U Benzodiazepines Scrn Pos H (Neg) Urine Cocaine Screen Pos H (Neg) U Cannabinoids Screen Pos H (Neg) Serum Alcohol (0-5) mg/dL 12/26/17 Range/Units 04:07 WBC (4.0-11.0) th/mm3 RBC (4.00-5.30) mil/mm3 Hgb (11.6-15.3) gm/dL Hct (35.0-46.0) % MCV (80.0-100.0) fL MCH (27.0-34.0) pg MCHC (32.0-36.0) % RDW (11.6-17.2) % Plt Count (150-450) th/mm3 MPV (7.0-11.0) fL Neut % (Auto) (16.0-70.0) % Lymph % (Auto) (9.0-44.0) % [place] % (Auto) (0.0-8.0) % Eos % (Auto) (0.0-4.0) % Baso % (Auto) (0.0-2.0) % Neut # (Auto) (1.8-7.7) th/mm3 Lymph # (Auto) (1.0-4.8) th/mm3 [place] # (Auto) (0.0-0.9) th/mm3 Eos # (Auto) (0.0-0.4) th/mm3 Baso # (Auto) (0.0-0.2) th/mm3 WBC Differential Differential Comment Sodium 144 (136-145) meq/L Potassium 3.9 D (3.5-5.1) meq/L Chloride 114 H D (98-107) meq/L Carbon Dioxide 22.6 (21.0-32.0) meq/L Anion Gap 7 (5-15) meq/L BUN 10 (7-18) mg/dL Creatinine 0.48 L (0.50-1.00) mg/dL Estimated GFR Greater than 89 (>89) mL/min Random Glucose 78 (74-106) mg/dL Calcium 7.7 L D (8.5-10.1) mg/dL Total Bilirubin 0.6 (0.2-1.0) mg/dL AST 53 H (15-37) U/L ALT 48 (10-53) U/L Alkaline Phosphatase 43 L (45-117) U/L Total Protein 5.8 L D (6.4-8.2) g/dL Albumin 3.2 L D (3.4-5.0) g/dL TSH (0.358-3.740) uIU/mL Urine Color (Yellw/Straw) Urine Clarity (Clear) Urine pH (5.0-8.5) Ur Specific [place] (1.002-1.035) Urine Protein (Neg-Trace) mg/dL Urine Glucose (UA) (Negative) mg/dL Urine Ketones (Negative) mg/dL Urine Occult Blood (Negative) Urine Nitrate (Negative) Urine Bilirubin (Negative) Urine Urobilinogen (Less than 2) mg/dL Ur Leukocyte Esterase (Negative) Urine RBC (0-3) /hpf Urine WBC (0-5) /hpf Ur Squamous Epith Cells (0-5) /hpf Urine Bacteria (None) /hpf Urine Mucus (Occasional) /lpf Micro UA Comment Ur Microscopic Review Urine Culture Comments Salicylates (2.8-20.0) mg/dL Urine Opiates Screen (Neg) Acetaminophen (10.0-30.0) mcg/mL Ur Barbiturates Screen (Neg) Ur Amphetamines Screen (Neg) U Benzodiazepines Scrn (Neg) Urine Cocaine Screen (Neg) U Cannabinoids Screen (Neg) Serum Alcohol (0-5) mg/dL Imaging Data Radiologist's impression: Head CT 12/25/17 11:41 CONCLUSION: 1. No acute intracranial abnormality. . Discharge Plan Discharge Disposition Patient Disposition: 30 Still Patient Discharge Condition Condition: Stable Discharge Order Discharge Orders: Discharge Order (Routine); Ordered 12/26/17 Ordered By: Abe Christine Physicians Team ED Provider: William Rouse ED Midlevel Provider: Esperanza Simms Primary Care Provider: UNKNOWN, Attending Provider: Yovany Metcalf Other Providers: Nigel Hernandez Status ED Status: Left Department Discharge Information Discharge Date/Time: 12/25/17 18:54
[2017-12-25] MEDS ORDERED: Sod Chloride 0.9% Inj 1,000 ML IV.SIG SCH ×3 (11:45→15:30)
[2017-12-25 12:23] LABS: Baso # (Auto) 0.1 th/mm3 (0.0-0.2); Eos # (Auto) 0.1 th/mm3 (0.0-0.4); Eos % (Auto) 0.8 % (0.0-4.0); Hematocrit 38.5 % (35.0-46.0); Hemoglobin 13.5 gm/dL (11.6-15.3); Lymph # (Auto) 2.8 th/mm3 (1.0-4.8); Lymph % (Auto) 33.8 % (9.0-44.0); Mean Corpuscular HGB Conc 35.2 % (32.0-36.0); Mean Corpuscular Hemoglobin 32.8 pg (27.0-34.0); Mean Corpuscular Volume 93.2 fL (80.0-100.0); Mean Platelet Volume 8.4 fL (7.0-11.0); Mono # (Auto) 0.8 th/mm3 (0.0-0.9); Mono % (Auto) 9.7 % (0.0-8.0); Neut # (Auto) 4.6 th/mm3 (1.8-7.7); Neut % (Auto) 54.7 % (16.0-70.0); Platelet Count 291 th/mm3 (150-450); Red Blood Count 4.13 mil/mm3 (4.00-5.30); Red Cell Distribution Width 12.5 % (11.6-17.2); White Blood Count 8.4 th/mm3 (4.0-11.0)
--- NOTE | 2017-12-25 12:40 | CT ---
EXAM DATE: 12/25/2017 12:30 PM EDT AGE/SEX: 32 years / Female INDICATIONS: Altered mental status CLINICAL DATA: This is the patient's initial encounter. Patient reports that signs and symptoms have been present for 1 day and indicates a pain score of Nonresponsive. MEDICAL/SURGICAL HISTORY: Asthma. colitis heart attack None. RADIATION DOSE: 34 CTDI (mGy) COMPARISON: No prior exams available for comparison. TECHNIQUE: CT of the head without contrast. Using automated exposure control and adjustment of the mA and/or kV according to patient size, radiation dose was kept as low as reasonably achievable to ob tain optimal diagnostic quality images. DICOM format image data is available electronically for revi ew and comparison. FINDINGS: Cerebrum: The ventricles are normal for age. No evidence of midline shift, mass lesion, hemorrhage or acute infarction. No extraaxial fluid collections are seen. Bilateral lacunes in temporal lobes l ikely vascular channels. Posterior Fossa: The cerebellum and brainstem are intact. The 4th ventricle is midline. The cerebe llopontine angle is unremarkable. Extracranial: The visualized portion of the orbits is intact. Skull: The calvaria is intact. No evidence of skull fracture. CONCLUSION: 1. No acute intracranial abnormality. . Electronically signed by: Mookie Cid MD 12/25/2017 12:38 PM EDT
[2017-12-25 12:46] LABS: Albumin 4.6 g/dL (3.4-5.0); Anion Gap 13 meq/L (5-15); Aspartate Aminotransferase 20 U/L (15-37); Blood Urea Nitrogen 13 mg/dL (7-18); Chloride 104 meq/L (98-107); Glomerular Filtration Rate Greater Than 89 mL/min (>89); Glucose,Random 96 mg/dL (74-106); Potassium 3.1 meq/L (3.5-5.1); Sodium 139 meq/L (136-145)
[2017-12-25 12:47] LABS: Alanine Aminotransferase 26 U/L (10-53)
[2017-12-25 12:49] LABS: Bacteria,Urine Occasional /hpf; Bilirubin,Urine Negative (Negative); Clarity,Urine Cloudy (Clear); Color,Urine Yellow (Yellw/Straw); Glucose,Urine (UA) Negative (Negative); Leukocyte Esterase,Urine Trace (Negative); Mucus,Urine Few /lpf (Occasional); Nitrite,Urine Negative (Negative); Specific Gravity,Urine 1.016 (1.002-1.035); Squamous Epithelial Cell,Urine 130 /hpf (0-5); Urobilinogen,Urine 4 or Greater mg/dL (Less than 2)
[2017-12-25 12:57] LABS: Alkaline Phosphatase 46 U/L (45-117)
[2017-12-25 13:00] LABS: Amphetamine Screen,Urine Neg (Neg); Barbiturate Screen,Urine Neg (Neg); Cannabinoid Screen,Urine Pos (Neg); Cocaine Screen,Urine Pos (Neg)
[2017-12-25 13:02] LABS: Opiate Screen,Urine Neg (Neg)
--- NOTE | 2017-12-25 13:30 | P.PNPSY ---
I attempted to screen this patient once she was medically cleared, however, I was unable to wake her. Her nurse reported that she only awakens, albeit briefly , to a sternal rub.
--- NOTE | 2017-12-25 16:32 | P.HPIM ---
History of Present Illness Primary Care Physician: UNKNOWN History of Present Illness: Mrs. Senior is a 32 year old female. She is brought to the hospital under a Aguilera Act and reportedly took 12 Xanax, Oxycodone, and Alcohol. Lethargy is present. Additionally she was hypotensive, which has improved with treatment in the ER. UDS is positive for Cocaine and Cannabinoids in addition to the already substances. She can provide a good history due to lethargy. Review of Systems unobtainable due to mental condition, unobtainable due to mental status PMFSH - History History Provided By: Patient - Medical History Medical History: Medical History (Last Reviewed 12/25/17 @ 11:43 by HEATHER Oneill) Asthma delivery delivered Colitis Heart attack - Family History Family History: Family History (Last Updated 12/25/17 @ 16:28 by Zhou Banegas MD) Other Osteoarthritis - Tobacco History Tobacco Use In Past 30 Days: Yes Smoking Status: Current every day smoker Tobacco Type: Cigarettes - Alcohol History How Often Do You Have a Drink Containing Alcohol: 2 to 3 times a week - Substance Use History Substance History: Past History - Substance Use Type Marijuana Status: Early Remission Route Used: Inhalation Crack/Cocaine Status: Early Remission - Travel History Recent Travel in the [place] Within the Last 8 Weeks: No Recent Travel Out of the Country Within the Last 8 Weeks: No - Immunization History Tetanus Immunization: <5 Years Medications and Allergies Active Medications: Active Medications Sodium Chloride (Ns Inj) 1,000 mls @ 0 mls/hr IV.SIG BOLUS PRECIOUS Last Admin: 12/25/17 11:54 Dose: 1,000 mls/hr Sodium Chloride (Ns Inj) 1,000 mls @ 0 mls/hr IV.SIG BOLUS PRECIOUS Last Admin: 12/25/17 13:38 Dose: 1,000 mls/hr Sodium Chloride (Ns Inj) 1,000 mls @ 0 mls/hr IV.SIG BOLUS PRECIOUS Stop: 12/26/17 15:31 Allergies Allergy/AdvReac Type Severity Reaction Status Date / Time pineapple Allergy Severe Anaphylaxis Verified 12/25/17 11:56 Home Medications Medication Instructions Recorded Confirmed Type No Known Home Medications 12/25/17 12/25/17 History Exam Vital signs: Vital Signs 12/25/17 10:50 12/25/17 11:56 12/25/17 13:00 Temperature 98.2 F Pulse Rate 93 H 90 76 Respiratory Rate 14 18 16 Blood Pressure 118/86 112/76 95/61 L Pulse Oximetry 100 99 99 12/25/17 14:00 12/25/17 15:00 Temperature Pulse Rate 70 60 Respiratory Rate 16 16 Blood Pressure 57/52 L 85/53 L Pulse Oximetry 99 99 Intake & Output 12/24/17 12/25/17 12/25/17 18:59 06:59 18:59 Weight 52.163 kg Narrative: GENERAL: NAD, A&Ox0, lethargic HEAD: Normocephalic. NECK: Supple, trachea midline. No lymphadenopathy. EYES: No scleral icterus. No injection or drainage. CARDIOVASCULAR: Regular rate and rhythm without murmurs, gallops, or rubs. RESPIRATORY: Breath sounds equal bilaterally. No accessory muscle use. GASTROINTESTINAL: Abdomen soft, non-tender, nondistended. MUSCULOSKELETAL: No cyanosis, or edema. SKIN: Warm and dry. NEURO: No focal neurological deficits. Results - Labs CBC & Chem 7: 12/25/17 11:51 12/25/17 11:51 Labs: Short CBC 12/25/17 Range/Units 11:51 WBC 8.4 (4.0-11.0) th/mm3 Hgb 13.5 (11.6-15.3) gm/dL Hct 38.5 (35.0-46.0) % Plt Count 291 (150-450) th/mm3 BMP 12/25/17 11:51 Sodium 139 Potassium 3.1 L Chloride 104 Carbon Dioxide 22.0 BUN 13 Creatinine 0.59 Calcium 9.0 Liver Function 12/25/17 Range/Units 11:51 Total Bilirubin 1.2 H (0.2-1.0) mg/dL AST 20 (15-37) U/L ALT 26 (10-53) U/L Alkaline Phosphatase 46 (45-117) U/L Albumin 4.6 (3.4-5.0) g/dL Urine 12/25/17 Range/Units 11:51 Urine Color Yellow (Yellw/Straw) Urine Clarity Cloudy H (Clear) Urine pH 6.0 (5.0-8.5) Ur Specific [place] 1.016 (1.002-1.035) Urine Protein Negative (Neg-Trace) mg/dL Urine Glucose (UA) Negative (Negative) mg/dL - Imaging Impressions Head CT 12/25/17 11:41 CONCLUSION: 1. No acute intracranial abnormality. . Caprini VTE Risk Assessment Caprini VTE Risk Assessment: No/Low Risk (score <= 1) Caprini Risk Assessment Model: Point Value = 1 Point Value = 2 Point Value = 3 Point Value = 5 Age 41-60 Minor surgery BMI > 25 kg/m2 Swollen legs Varicose veins or History of unexplained or recurrent spontaneous Oral contraceptives or hormone replacement Sepsis (< 1 month) Serious lung disease, including pneumonia (< 1 month) Abnormal pulmonary function Acute myocardial infarction Congestive heart failure (< 1 month) History of inflammatory bowel disease Medical patient at bed rest Age 61-74 Arthroscopic surgery Major open surgery (> 45 min) Laparoscopic surgery (> 45 min) Malignancy Confined to bed (> 72 hours) Immobilizing plaster cast Central venous access Age >= 75 History of VTE Family history of VTE Factor V Leiden Prothrombin [id number] Lupus anticoagulant Anticardiolipin antibodies Elevated serum homocysteine Heparin-induced thrombocytopenia Other congenital or acquired thrombophilia Stroke (< 1 month) Elective arthroplasty Hip, pelvis, or leg fracture Acute spinal cord injury (< 1 month) Prophylaxis Regimen: Total Risk Factor Score Risk Level Prophylaxis Regimen 0-1 Low Early ambulation 2 Moderate Order ONE of the following: *Sequential Compression Device (SCD) *Heparin 5000 units SQ BID 3-4 Higher Order ONE of the following medications: *Heparin 5000 units SQ TID *Enoxaparin/Lovenox 40 mg SQ daily (WT < 150 kg, CrCl > 30 mL/min) *Enoxaparin/Lovenox 30 mg SQ daily (WT < 150 kg, CrCl > 10-29 mL/min) *Enoxaparin/Lovenox 30 mg SQ BID (WT < 150 kg, CrCl > 30 mL/min) AND/OR *Sequential Compression Device (SCD) 5 or more Highest Order ONE of the following medications: *Heparin 5000 units SQ TID (Preferred with Epidurals) *Enoxaparin/Lovenox 40 mg SQ daily (WT < 150 kg, CrCl > 30 mL/min) *Enoxaparin/Lovenox 30 mg SQ daily (WT < 150 kg, CrCl > 10-29 mL/min) *Enoxaparin/Lovenox 30 mg SQ BID (WT < 150 kg, CrCl > 30 mL/min) AND *Sequential Compression Device (SCD) Assessment and Plan - Plan 32-year-old female admitted secondary to drug overdose, under Aguilera act. Drug overdose Xanax overdose Opioid abuse Cocaine abuse Marijuana abuse Alcohol abuse Avoid substance abuse IV hydration Monitor clinically Monitor for withdrawals Follow LFTs Aguilera act status Overdose Psychiatry consulted Hypotension Improved with fluid boluses IV hydration Monitor for any recurrence Asthma History of colitis History of old [place] History of [place] suspicious for drug abuse etiology These conditions are asymptomatic Follow clinically DVT prophylaxis SCDs
[2017-12-25] MEDS: Sod Chloride 0.9% Inj 1,000 ML IV.CONT SCH (17:37)
[2017-12-26 04:51] LABS: Baso # (Auto) 0.1 th/mm3 (0.0-0.2); Eos # (Auto) 0.1 th/mm3 (0.0-0.4); Eos % (Auto) 2.1 % (0.0-4.0); Hematocrit 34.3 % (35.0-46.0); Hemoglobin 11.6 gm/dL (11.6-15.3); Lymph # (Auto) 3.4 th/mm3 (1.0-4.8); Lymph % (Auto) 49.2 % (9.0-44.0); Mean Corpuscular HGB Conc 33.9 % (32.0-36.0); Mean Corpuscular Hemoglobin 32.5 pg (27.0-34.0); Mean Corpuscular Volume 95.9 fL (80.0-100.0); Mean Platelet Volume 7.9 fL (7.0-11.0); Mono # (Auto) 0.6 th/mm3 (0.0-0.9); Mono % (Auto) 8.6 % (0.0-8.0); Neut # (Auto) 2.7 th/mm3 (1.8-7.7); Neut % (Auto) 39.1 % (16.0-70.0); Platelet Count 215 th/mm3 (150-450); Red Blood Count 3.58 mil/mm3 (4.00-5.30); Red Cell Distribution Width 12.4 % (11.6-17.2); White Blood Count 6.9 th/mm3 (4.0-11.0)
[2017-12-26 05:22] LABS: Alanine Aminotransferase 48 U/L (10-53); Albumin 3.2 g/dL (3.4-5.0); Alkaline Phosphatase 43 U/L (45-117); Anion Gap 7 meq/L (5-15); Aspartate Aminotransferase 53 U/L (15-37); Blood Urea Nitrogen 10 mg/dL (7-18); Calcium 7.7 mg/dL (8.5-10.1); Carbon Dioxide 22.6 meq/L (21.0-32.0); Chloride 114 meq/L (98-107); Glomerular Filtration Rate Greater Than 89 mL/min (>89); Glucose,Random 78 mg/dL (74-106); Potassium 3.9 meq/L (3.5-5.1); Sodium 144 meq/L (136-145); Total Protein 5.8 g/dL (6.4-8.2)
[2017-12-26] MEDS: Sod Chloride 0.9% Inj 1,000 ML IV.CONT SCH ×3 (08:05→17:02)
--- NOTE | 2017-12-26 08:53 | P.PN ---
Physical Exam Vital signs: Vital Signs 12/25/17 10:50 12/25/17 11:56 12/25/17 13:00 Temperature 98.2 F Pulse Rate 93 H 90 76 Respiratory Rate 14 18 16 Blood Pressure 118/86 112/76 95/61 L Pulse Oximetry 100 99 99 12/25/17 14:00 12/25/17 15:00 12/25/17 17:30 Temperature 97.7 F Pulse Rate 70 60 71 Respiratory Rate 16 16 18 Blood Pressure 57/52 L 85/53 L 110/66 Pulse Oximetry 99 99 100 12/25/17 20:00 12/26/17 00:00 12/26/17 04:00 Temperature 98.2 F 98.1 F 98.2 F Pulse Rate 88 81 64 Respiratory Rate 20 20 20 Blood Pressure 113/75 125/88 100/59 L Pulse Oximetry 100 100 100 Intake & Output 12/25/17 12/26/17 12/26/17 18:59 06:59 18:59 Intake Total 1999 540 / 540 Balance 1999 540 / 540 Weight 52.163 kg 52.16 kg Intake: IV 1999 NS Inj 1,000 ML @ Wide Open IV. 1999 SIG BOLUS PRECIOUS Rx#:[id number] Oral 540 / 540 Other: # Voids 5 Date of Last Bowel Movement 12/24/17 12/25/17 Results - Labs CBC & Chem 7: 12/26/17 04:07 12/26/17 04:07 Laboratory Results - last 24 hr 12/25/17 12/25/17 12/25/17 11:51 11:51 11:51 WBC 8.4 RBC 4.13 Hgb 13.5 Hct 38.5 MCV 93.2 MCH 32.8 MCHC 35.2 RDW 12.5 Plt Count 291 MPV 8.4 Neut % (Auto) 54.7 Lymph % (Auto) 33.8 [place] % (Auto) 9.7 H Eos % (Auto) 0.8 Baso % (Auto) 1.0 Neut # (Auto) 4.6 Lymph # (Auto) 2.8 [place] # (Auto) 0.8 Eos # (Auto) 0.1 Baso # (Auto) 0.1 WBC Differential . Differential Comment Auto diff final Sodium 139 Potassium 3.1 L Chloride 104 Carbon Dioxide 22.0 Anion Gap 13 BUN 13 Creatinine 0.59 Estimated GFR Greater than 89 Random Glucose 96 Calcium 9.0 Total Bilirubin 1.2 H AST 20 ALT 26 Alkaline Phosphatase 46 Total Protein 8.0 Albumin 4.6 TSH 0.960 Urine Color Urine Clarity Urine pH Ur Specific [place] Urine Protein Urine Glucose (UA) Urine Ketones Urine Occult Blood Urine Nitrate Urine Bilirubin Urine Urobilinogen Ur Leukocyte Esterase Urine RBC Urine WBC Ur Squamous Epith Cells Urine Bacteria Urine Mucus Micro UA Comment Ur Microscopic Review Urine Culture Comments Salicylates 2.4 L Urine Opiates Screen Acetaminophen Less than 2.0 L Ur Barbiturates Screen Ur Amphetamines Screen U Benzodiazepines Scrn Urine Cocaine Screen U Cannabinoids Screen Serum Alcohol Less than 3 12/25/17 12/25/17 12/26/17 11:51 11:51 04:07 WBC 6.9 RBC 3.58 L Hgb 11.6 Hct 34.3 L MCV 95.9 MCH 32.5 MCHC 33.9 RDW 12.4 Plt Count 215 MPV 7.9 Neut % (Auto) 39.1 Lymph % (Auto) 49.2 H [place] % (Auto) 8.6 H Eos % (Auto) 2.1 Baso % (Auto) 1.0 Neut # (Auto) 2.7 Lymph # (Auto) 3.4 [place] # (Auto) 0.6 Eos # (Auto) 0.1 Baso # (Auto) 0.1 WBC Differential . Differential Comment Auto diff final Sodium Potassium Chloride Carbon Dioxide Anion Gap BUN Creatinine Estimated GFR Random Glucose Calcium Total Bilirubin AST ALT Alkaline Phosphatase Total Protein Albumin TSH Urine Color Yellow Urine Clarity Cloudy H Urine pH 6.0 Ur Specific [place] 1.016 Urine Protein Negative Urine Glucose (UA) Negative Urine Ketones Trace H Urine Occult Blood Small H Urine Nitrate Negative Urine Bilirubin Negative Urine Urobilinogen 4 or greater Ur Leukocyte Esterase Trace H Urine RBC 2 Urine WBC 2 Ur Squamous Epith Cells 130 Urine Bacteria Occasional H Urine Mucus Few H Micro UA Comment Culture not ind Ur Microscopic Review Not Reportable Urine Culture Comments Culture not ind Salicylates Urine Opiates Screen Neg Acetaminophen Ur Barbiturates Screen Neg Ur Amphetamines Screen Neg U Benzodiazepines Scrn Pos H Urine Cocaine Screen Pos H U Cannabinoids Screen Pos H Serum Alcohol 12/26/17 04:07 WBC RBC Hgb Hct MCV MCH MCHC RDW Plt Count MPV Neut % (Auto) Lymph % (Auto) [place] % (Auto) Eos % (Auto) Baso % (Auto) Neut # (Auto) Lymph # (Auto) [place] # (Auto) Eos # (Auto) Baso # (Auto) WBC Differential Differential Comment Sodium 144 Potassium 3.9 D Chloride 114 H D Carbon Dioxide 22.6 Anion Gap 7 BUN 10 Creatinine 0.48 L Estimated GFR Greater than 89 Random Glucose 78 Calcium 7.7 L D Total Bilirubin 0.6 AST 53 H ALT 48 Alkaline Phosphatase 43 L Total Protein 5.8 L D Albumin 3.2 L D TSH Urine Color Urine Clarity Urine pH Ur Specific [place] Urine Protein Urine Glucose (UA) Urine Ketones Urine Occult Blood Urine Nitrate Urine Bilirubin Urine Urobilinogen Ur Leukocyte Esterase Urine RBC Urine WBC Ur Squamous Epith Cells Urine Bacteria Urine Mucus Micro UA Comment Ur Microscopic Review Urine Culture Comments Salicylates Urine Opiates Screen Acetaminophen Ur Barbiturates Screen Ur Amphetamines Screen U Benzodiazepines Scrn Urine Cocaine Screen U Cannabinoids Screen Serum Alcohol - Imaging Impressions Head CT 12/25/17 11:41 CONCLUSION: 1. No acute intracranial abnormality. .
[2017-12-26] MEDS ORDERED: Famotidine 20 MG Tablet PO SCH (09:00)
--- NOTE | 2017-12-26 13:38 | P.CONPSY ---
Provisional Diagnosis Admission Date: December 25, 2017 16:25 [place] I.: Polysubstance dependence including marijuana, cocaine, Xanax and alcohol, bipolar depression, [place] II.: Cluster B traits, rule out borderline personality disorder History of Present Illness Service: Medicine Primary Care Provider: UNKNOWN History of Present Illness: The patient is a 32-year-old woman, domiciled in [place] with her and 3 years old daughter, employed at [employer], with psychiatric history of bipolar depression, substance dependence including cocaine, marijuana , alcohol, benzodiazepines, 3 previous psychiatric hospitalizations, previous suicide attempts, extensive history of self-cutting behavior without SI, she has been seeing a couple times here in [place] [facility] on the [employer] act clear, documentation reviewed, medical history of asthma and colitis, arrives via EMS under [employer] act. According to the [employer] act report the deputy observed the patient was unable to stand up without assistance, hold her head up, and keep her eyes open. The patient stated she saw no point in trying because she was just going to end up back in [place] [facility] and wanted to kill herself. The patient advised the officer that she had taken 12 Xanax. According to the triage note the patient had admitted to taking 12 Xanax, 2 oxycodone, 40 beers in the past 12-24 hours. Chart was reviewed. I got collateral information from her , , who states that his tried to commit suicide because he was trying to avoid some legal responsibilities, but he thinks that he was just being stupid, trying to manipulate and not try to really commit suicide on my examination the patient denies suicidal ideation. On evaluation the patient is quite lethargic, but calm and superficially cooperative. She says that she was just "caught up in the moment." The patient at times tearful , she says that she has been depressed due to her current medical and legal situation. The patient states that she prefers not to talk about those problems at this moment. She was able to contract for safety in the unit. Disoriented 3. Does not seem to be in acute withdrawal. PPHx: psychiatric history of bipolar depression, substance dependence including cocaine, marijuana, alcohol, benzodiazepines, 3 previous psychiatric hospitalizations, previous suicide attempts, extensive history of self-cutting behavior without SI, she has been seeing a couple times here in [place] [facility] on the [employer] act clear PMHx: Asthma and collided Substance Hx: Patient reports daily use of marijuana, cocaine, Xanax and alcohol Family Hx: No family psychiatric history Family Hx: The patient was born and raised in [facility], woman, domiciled in [place] with her and 3 years old daughter, employed at [employer], Review of Systems Constitutional: Denies anorexia, Denies body ache(s), Denies chills, Denies daytime sleepiness, Denies excessive sweating, Denies fatigue, Denies fever(s), Denies headache(s), Denies increased appetite, Denies lack of energy, Denies malaise, Denies night sweats, Denies weakness, Denies weight gain, Denies weight loss, Denies other Eyes: Denies blind spots, Denies blurry vision, Denies bulging eyes, Denies change in vision, Denies double vision, Denies discharge, Denies dry eyes, Denies floaters, Denies irritation, Denies itchy eyes, Denies loss of vision, Denies pain, Denies requires corrective lenses, Denies sensitivity to light, Denies other Ears, Nose, Mouth, and Throat: Denies abnormal hearing, Denies bleeding gums, Denies bad breath, Denies change in voice, Denies dental pain, Denies difficulty swallowing, Denies dizziness, Denies dry mouth, Denies ear discharge , Denies ear pain, Denies facial pain, Denies headache(s), Denies hearing loss, Denies hoarseness, Denies lip swelling, Denies nosebleed, Denies mouth lesions, Denies mouth pain, Denies nasal congestion, Denies nasal discharge, Denies nasal obstruction, Denies nasal trauma, Denies neck lump, Denies neck pain, Denies nose pain, Denies pain with swallowing, Denies poor balance, Denies post nasal drip, Denies ringing in the ears, Denies sinus pain, Denies sinus pressure , Denies sore throat, Denies throat swelling, Denies tongue swelling, Denies other Cardiovascular: Denies chest pain, Denies chest pain at rest, Denies chest pain with activity, Denies excessive sweating, Denies fainting, Denies fast heart rate, Denies foot swelling, Denies generalized swelling, Denies irregular heart rhythm, Denies leg pain with activity, Denies leg sores, Denies leg swelling, Denies lightheadedness, Denies radiating jaw, neck or arm pain, Denies rapid, pounding, or irregular heartbeat, Denies shortness of breath, Denies shortness of breath with activity, Denies shortness of breath when lying down, Denies shortness of breath causing sudden awakening, Denies slow heart rate, Denies other Respiratory: Denies change in phlegm color, Denies chest congestion, Denies cough, Denies coughing up blood, Denies excessive phlegm production, Denies pain on inspiration, Denies pain with cough, Denies shortness of breath, Denies shortness of breath with activity, Denies snoring, Denies stridor, Denies wheezing, Denies other Gastrointestinal: Denies abdominal pain, Denies belching, Denies black, tarry stools, Denies bloating, Denies bright, red blood in stools, Denies change in bowel habits, Denies constant urge to pass stool, Denies change in stools, Denies coffee ground vomit, Denies constipation, Denies cramping, Denies difficulty swallowing, Denies excessive passing of gas, Denies feeling full early, Denies heartburn, Denies incontinent of stools, Denies loose stools, Denies nausea, Denies pain with swallowing, Denies vomiting, Denies vomiting blood, Denies other Genitourinary: Denies abnormal periods, Denies abnormal vaginal bleeding, Denies absent period, Denies bleeding between periods, Denies blood in urine, Denies difficulty starting urination, Denies difficulty urinating, Denies dribbling after urination, Denies frequent nighttime urination, Denies genital itching, Denies genital lesions, Denies heavy periods, Denies hot flashes, Denies light periods, Denies nipple discharge, Denies painful intercourse, Denies painful periods, Denies painful urination, Denies pelvic pain, Denies prolapse symptoms, Denies sexual problems, Denies side pain, Denies urinary incontinence, Denies urinary urgency, Denies vaginal discharge, Denies vaginal dryness, Denies vaginal odor, Denies vaginal itching, Denies other Musculoskeletal: Denies abnormal walking, Denies back pain, Denies body aches, Denies decreased muscle mass, Denies deformity, Denies joint pain, Denies joint swelling, Denies limited joint movement, Denies loss of height, Denies muscle cramps, Denies muscle weakness, Denies neck pain, Denies numbness, Denies radiating pain into limb, Denies stiffness, Denies tingling, Denies other Skin/Breast: Denies acne, Denies bleeding lesions, Denies boil, Denies breast swelling, Denies breast skin changes, Denies breast pain, Denies breast lump, Denies change in breast shape, Denies change in hair, Denies change in skin color, Denies changing lesions, Denies dry skin, Denies excessive hair growth, Denies hair loss, Denies itching, Denies lesions, Denies nail changes, Denies new lesions, Denies nipple discharge, Denies non-healing lesions, Denies redness , Denies sensitivity to light, Denies rash, Denies skin pain, Denies skin ulcer , Denies sores, Denies stretch harding, Denies unusual bruising, Denies wounds, Denies yellowing of the skin, Denies other Neurologic: Denies abnormal hearing, Denies abnormal movements, Denies abnormal speech, Denies abnormal walking, Denies behavioral changes, Denies burning sensations, Denies confusion, Denies dizziness, Denies fainting, Denies frequent falls, Denies headache(s), Denies lack of coordination, Denies localized weakness, Denies loss of vision, Denies memory loss, Denies numbness, Denies other visual disturbances, Denies radiating pain, Denies restless legs, Denies convulsions, Denies seizure-like activity, Denies sensory deficit, Denies tingling, Denies tingling/numbness/burning sensations, Denies tremor(s), Denies unsteadiness, Denies weakness, Denies other Psychiatric: Denies abnormal sleep pattern, Denies anxiety, Denies behavioral changes, Denies change in appetite, Denies change in sex drive, Denies confusion , Denies depression, Denies difficulty concentrating, Denies hearing things others do not hear, Denies hopelessness, Denies irritability, Denies lack of enjoyment, Denies memory loss, Denies mood swings, Denies panic attacks, Denies paranoia, Denies seeing things others do not see, Denies sensing things others do not sense, Denies tactile hallucinations, Denies thoughts of hurting/killing others, Denies thoughts of hurting/killing yourself, Denies other PMFSH - History History Provided By: Patient - Medical History Medical History: Medical History (Last Reviewed 12/25/17 @ 11:43 by HEATHER Oneill) Asthma delivery delivered Colitis Heart attack - Family History Family History: Family History (Last Updated 12/25/17 @ 16:28 by Zhou Banegas MD) Other Osteoarthritis - Tobacco History Second Hand Smoke Exposure: Yes Tobacco Use In Past 30 Days: Yes Smoking Status: Current every day smoker Tobacco Type: Cigarettes - Alcohol History How Often Do You Have a Drink Containing Alcohol: 2 to 3 times a week - Substance Use History Substance History: Active Abuse - Substance Use Type Marijuana Status: Active Route Used: Inhalation Frequency: EVERY FEW DAYS Reason for Use: Calm Down Crack/Cocaine Type: COCAINE Status: Active Route Used: Intravenously Frequency: ONCE A YEAR Reason for Use: Curiosity - Travel History Recent Travel in the [place] Within the Last 8 Weeks: No Recent Travel Out of the Country Within the Last 8 Weeks: No - Immunization History Tetanus Immunization: Unsure Hx Influenza Vaccine This Season: Yes Medications and Allergies Active Medications: Active Medications Al Hydroxide/Mg Hydroxide (Milk Of Doreen Liq) 30 ml PO Q12H PRN PRN Reason: Mild Constipation Famotidine (Pepcid) 10 mg PO BID PRECIOUS Last Admin: 12/26/17 09:26 Dose: 10 mg Sodium Chloride (Ns Inj) 1,000 mls @ 0 mls/hr IV.SIG BOLUS PRECIOUS Last Infusion: 12/25/17 12:54 Dose: Infused Sodium Chloride (Ns Inj) 1,000 mls @ 0 mls/hr IV.SIG BOLUS PRECIOUS Last Infusion: 12/25/17 14:38 Dose: Infused Sodium Chloride (Ns Inj) 1,000 mls @ 0 mls/hr IV.SIG BOLUS PRECIOUS Stop: 12/26/17 15:31 Sodium Chloride (Ns Inj) 1,000 mls @ 125 mls/hr IV.CONT .Q8H PRECIOUS Last Admin: 12/26/17 08:50 Dose: 125 mls/hr Miscellaneous (Pill Splitter) 1 each OTHER DAILY PREICOUS Nicotine (Habitrol 21 Mg Patch.24 Hr) 1 patch T-DERMAL DAILY PRECIOUS Last Admin: 12/26/17 08:48 Dose: 1 patch Ondansetron HCl (Zofran Inj) 4 mg IV.PUSH Q6H PRN PRN Reason: NAUSEA OR VOMITING Ondansetron HCl (Zofran Odt) 4 mg PO Q6H PRN PRN Reason: NAUSEA OR VOMITING Patch Removal (Remove Old Patch) 1 each T-DERMAL DAILY PRECIOUS Last Admin: 12/26/17 08:48 Dose: 1 each Allergies Allergy/AdvReac Type Severity Reaction Status Date / Time pineapple Allergy Severe Anaphylaxis Verified 12/25/17 11:56 Home Medications Medication Instructions Recorded Confirmed Type buprenorphine-naloxone [Suboxone] 1 film BUCCAL DAILY 12/25/17 12/25/17 History Exam Vital signs: Vital Signs 12/25/17 14:00 12/25/17 15:00 12/25/17 17:30 Temperature 97.7 F Pulse Rate 70 60 71 Respiratory Rate 16 16 18 Blood Pressure 57/52 L 85/53 L 110/66 Pulse Oximetry 99 99 100 12/25/17 20:00 12/26/17 00:00 12/26/17 04:00 Temperature 98.2 F 98.1 F 98.2 F Pulse Rate 88 81 64 Respiratory Rate 20 20 20 Blood Pressure 113/75 125/88 100/59 L Pulse Oximetry 100 100 100 12/26/17 08:00 12/26/17 08:03 12/26/17 12:00 Temperature 97.5 F L 97.2 F L Pulse Rate 58 L 57 L 65 Respiratory Rate 15 18 Blood Pressure 113/63 116/72 Pulse Oximetry 100 99 12/26/17 12:05 Temperature Pulse Rate 73 Respiratory Rate Blood Pressure Pulse Oximetry Intake & Output 12/25/17 12/26/17 12/26/17 18:59 06:59 18:59 Intake Total 1999 540 / 540 Balance 1999 540 / 540 Weight 52.163 kg 52.16 kg Intake: IV 1999 NS Inj 1,000 ML @ Wide Open IV. 1999 SIG BOLUS PRECIOUS Rx#:[id number] Oral 540 / 540 Other: # Voids 5 Date of Last Bowel Movement 12/24/17 12/25/17 Narrative: No tremors, no EPS, no psychomotor agitation retardation at the moment, no stiffness, no catatonia Mental Status Examination Appearance: Appropriate Consciousness: Alert Orientation: x4 Motor Activity: Normal gait Speech: Unremarkable Language: Adequate Fund of Knowledge: Adequate Attention and Concentration: Adequate Memory: Unremarkable Mood: Sad, Irritable Affect: Irritable Thought Process & Associations: Intact Thought Content: Appropriate Hallucination Type: None Delusion Type: None Suicidal Ideation: No Suicidal Plan: No Suicidal Intention: No Homicidal Ideation: No Homicidal Plan: No Homicidal Intention: No Insight: Adequate Judgment: Adequate Assessment and Plan - Assessment (1) Polysubstance dependence Code(s): F19.20 - Other psychoactive substance dependence, uncomplicated Status: Acute (2) Acute adjustment disorder Code(s): F43.20 - Adjustment disorder, unspecified Status: Acute - Plan Plan: Estimated LOS: [] days On psychiatric evaluation today I see a patient that is quite lethargic, irritable, superficially cooperative, minimizing recent suicidal attempt/ ideation, and symptoms of depression. Patient has a very contributory and vague excuse about recent suicide attempt, stating that she just wanted to avoid legal responsibility which is not congruent with the lethality of her overdose. Her does state that she has been depressed and she was quite serious. The patient has an extensive history of polysubstance dependence including Xanax, alcohol, cocaine and marijuana, poor impulse control, previous psychiatric hospitalizations, suicide attempts, self cutting behavior and for this reason she has an elevated risk of danger to self. Patient will be admitted in psychiatry for stabilization, safety and to provide treatment for depression. Transfer patient to psychiatry was medically stable. Continue CIWA. I have not been to start any antidepressant at this moment. In case of acute agitation Haldol 5 mg IM/IV, every 6 hour could be order. Seroquel 50 mg twice daily for behavioral dysregulation. Justification for Continued Inpatient Stay: For psychiatric admission
--- NOTE | 2017-12-26 13:43 | P.DS ---
Date of admission: 12/25/17 16:25 Primary care physician: UNKNOWN Attending physician on discharge: Yovany Metcalf Anticipated date of discharge: 12/26/17 Brief History from admission: Mrs. Senior is a 32 year old female. She is brought to the hospital under a [employer] Act and reportedly took 12 Xanax, Oxycodone, and Alcohol. Lethargy is present. Additionally she was hypotensive, which has improved with treatment in the ER. UDS is positive for Cocaine and Cannabinoids in addition to the already substances. She can provide a good history due to lethargy. DS: Medications - Discharge Medications Prescriptions: famotidine 10 mg PO BID #60 tab nicotine 1 patch TRANSDERMAL DAILY #7 ea DS: Summary Hospital Course: 32-year-old female with past medical history significant for asthma, colitis, and CT who presented to the emergency department on 12/25 under [employer] act after reportedly taking 12 Xanax tablets, oxycodone, along with alcohol. Urine drug screen was positive for cocaine and cannabis as well. On admission patient was hypotensive, she was treated with IV hydration. Psychiatry consulted for further recommendations. Patient was seen and examined this morning resting in bed comfortably, appears to be in no acute distress. She complains of acid reflux and is requesting something for this. Patient also reports some nausea but no vomiting. She denies any headaches, dizziness, cough, shortness of breath, chest pain, or abdominal pain or discomfort. Patient was later seen and evaluated by psychiatry services who recommends inpatient psychiatric evaluation once medically stable. So far patient's vitals have been stable and blood pressure has also improved. Lab work from this morning showed improvement in potassium levels. Mildly elevated AST level likely secondary to alcohol use along with mildly elevated alkaline phosphatase. Patient is awake, alert, and without any abdominal pain or discomfort other than reflux. She can be transferred to medical or outpatient psychiatry unit, recommend rechecking liver function tests in 1-2 days to ensure these normalized. Would also CIWA protocol. - Time Spent with Patient Total time spent providing and/or coordinating discharge services: Less than 30 minutes - Quality: VTE Deep Vein Thrombosis/Pulmonary Embolism Present on Admission: No Exam Vital signs: Vital Signs 12/25/17 14:00 12/25/17 15:00 12/25/17 17:30 Temperature 97.7 F Pulse Rate 70 60 71 Respiratory Rate 16 16 18 Blood Pressure 57/52 L 85/53 L 110/66 Pulse Oximetry 99 99 100 12/25/17 20:00 12/26/17 00:00 12/26/17 04:00 Temperature 98.2 F 98.1 F 98.2 F Pulse Rate 88 81 64 Respiratory Rate 20 20 20 Blood Pressure 113/75 125/88 100/59 L Pulse Oximetry 100 100 100 12/26/17 08:00 12/26/17 08:03 12/26/17 12:00 Temperature 97.5 F L 97.2 F L Pulse Rate 58 L 57 L 65 Respiratory Rate 15 18 Blood Pressure 113/63 116/72 Pulse Oximetry 100 99 12/26/17 12:05 Temperature Pulse Rate 73 Respiratory Rate Blood Pressure Pulse Oximetry Intake & Output 12/25/17 12/26/17 12/26/17 18:59 06:59 18:59 Intake Total 1999 540 / 540 Balance 1999 540 / 540 Weight 52.163 kg 52.16 kg Intake: IV 1999 NS Inj 1,000 ML @ Wide Open IV. 1999 SIG BOLUS PRECIOUS Rx#:[id number] Oral 540 / 540 Other: # Voids 5 Date of Last Bowel Movement 12/24/17 12/25/17 Narrative: GENERAL: Well-nourished, well-developed female in no acute distress. SKIN: Warm and dry. HEAD: Atraumatic. Normocephalic. EYES: Pupils equal and round. No scleral icterus. No injection or drainage. ENT: No nasal bleeding or discharge. Mucous membranes pink and moist. NECK: Trachea midline. No JVD. CARDIOVASCULAR: Regular rate and rhythm. RESPIRATORY: No accessory muscle use. Clear to auscultation. Breath sounds equal bilaterally. GASTROINTESTINAL: Abdomen soft, non-tender, nondistended.+ Bowel sounds. MUSCULOSKELETAL: Extremities without clubbing, cyanosis, or edema. No obvious deformities. NEUROLOGICAL: Awake and alert. No obvious cranial nerve deficits. Motor grossly within normal limits. Five out of 5 muscle strength in the arms and legs. Normal speech. PSYCHIATRIC: Appropriate mood and affect; insight and judgment normal. Results Procedures completed during hospitalization: None Labs on day of discharge: Labs from last 24 hours 12/26/17 12/26/17 04:07 04:07 WBC 6.9 RBC 3.58 L Hgb 11.6 Hct 34.3 L MCV 95.9 MCH 32.5 MCHC 33.9 RDW 12.4 Plt Count 215 MPV 7.9 Neut % (Auto) 39.1 Lymph % (Auto) 49.2 H [place] % (Auto) 8.6 H Eos % (Auto) 2.1 Baso % (Auto) 1.0 Neut # (Auto) 2.7 Lymph # (Auto) 3.4 [place] # (Auto) 0.6 Eos # (Auto) 0.1 Baso # (Auto) 0.1 WBC Differential . Differential Comment Auto diff final Sodium 144 Potassium 3.9 D Chloride 114 H D Carbon Dioxide 22.6 Anion Gap 7 BUN 10 Creatinine 0.48 L Estimated GFR Greater than 89 Random Glucose 78 Calcium 7.7 L D Total Bilirubin 0.6 AST 53 H ALT 48 Alkaline Phosphatase 43 L Total Protein 5.8 L D Albumin 3.2 L D - Impressions ITS Impressions Head CT 12/25/17 11:41 CONCLUSION: 1. No acute intracranial abnormality. . Discharge Plan - Discharge Disposition Patient Disposition: 66 [facility] To [facility] - Discharge Condition Condition: Stable - Discharge Order Discharge Orders: Discharge Order (Routine); Ordered 12/26/17 Ordered By: Abe Christine - Physicians Team Primary Care Provider: UNKNOWN, Attending Provider: Yovany Metcalf Other Providers: Nigel Hernandez MD
== END 2017-12-26 18:19 ==
LOC: NEDA 10:42 → NEPD 10:42 → N06 17:22
PROVIDERS: ADMIT Internal Medicine; ATTEND Internal Medicine
DX: J45.909 Unspecified asthma, uncomplicated; R41.82 Altered mental status, unspecified; Z91.5 Personal history of self-harm; I25.2 Old myocardial infarction; F17.210 Nicotine dependence, cigarettes, uncomplicated; T42.4X1A Poisoning by benzodiazepines, accidental (unintentional), initial encounter; R53.83 Other fatigue; I95.9 Hypotension, unspecified; F31.9 Bipolar disorder, unspecified; F19.20 Other psychoactive substance dependence, uncomplicated; K52.9 Noninfective gastroenteritis and colitis, unspecified; R47.81 Slurred speech

== ENCOUNTER 2017-12-26 18:23 | Inpatient (IN) ==
[2017-12-27] MEDS ORDERED: Bisacodyl 10 MG Supp RECTAL PRN (10:22)
[2017-12-27] MEDS ORDERED: Aluminum/Magnesium/Simethacone Susp 30 ML UDC PO PRN (10:22)
--- NOTE | 2017-12-27 11:45 | P.HPPSY ---
Provisional Diagnosis Admission Date: December 26, 2017 18:23 Lamar I.: Adjustment disorder with depressed mood vs MDD vs substance induced depression, polysubstance Lamar II.: Cluster B traits identified Competence Certification of Person's Competence To Provide Express and Informed Consent I have personally examined Shelly Senior, a person being served at [facility] on, December 27, 2017 1134. Express and informed consent means consent voluntarily given in writing, by a competent person, after sufficient explanation and disclosure of the subject matter involved to enable the person to make a knowing and willful decision without any element of force, fraud, deceit, duress, or other form of constraint or coercion. This person is 18 years of age or older, is not now known to be incompetent to consent to treatment with a guardian advocate, and does not have a health care surrogate or proxy currently making medical treatment decisions. I have found this person to be one of the following: [] Competent to provide express and informed consent, as defined above, for voluntary admission to this facility and is competent to provide express and informed consent for treatment. He/she has the consistent capacity to make well reasoned, willful, and knowing decisions concerning his or her medical or mental health treatment. The person fully and consistently understands the purpose of the admission for examination/placement and is fully capable of personally exercising all rights assured under [place] [] Incompetent to provide express and informed consent to voluntary admission, and this is incompetent to provide express and informed consent to treatment. The person must be transferred to involuntary status and a petition for a guardian advocate filed with the Circuit Court. [x] Refusing to provide express and informed consent to voluntary admission but is competent to provide express and informed consent for treatment. The person must be discharged or transferred to involuntary status. Form shall be completed within 24 hours of a person's arrival at the receiving facility and filed in the clinical record of each person: 1. Admitted on a voluntary basis 2. Permitted to provide express and informed consent to his/her own treatment 3. Allowed to transfer from involuntary to voluntary status 4. Prior to permitting a person to consent to his or her own treatment after having been previously found incompetent to consent to treatment. History of Present Illness Capacity: Has capacity History of Present Illness: 12/29/2007 in the medical floor my initial encounter with the patient: The patient is a 32-year-old woman, domiciled in [place] with her and 3 years old daughter, employed at [employer], with psychiatric history of bipolar depression, substance dependence including cocaine, marijuana , alcohol, benzodiazepines, 3 previous psychiatric hospitalizations, previous suicide attempts, extensive history of self-cutting behavior without SI, she has been seeing a couple times here in [place] [facility] on the [facility] act clear, documentation reviewed, medical history of asthma and colitis, arrives via EMS under [place] act. According to the [employer] act report the deputy observed the patient was unable to stand up without assistance, hold her head up, and keep her eyes open. The patient stated she saw no point in trying because she was just going to end up back in retirement and wanted to kill herself. The patient advised the officer that she had taken 12 Xanax. According to the triage note the patient had admitted to taking 12 Xanax, 2 oxycodone, 40 beers in the past 12-24 hours. Chart was reviewed. I got collateral information from her , , who states that his tried to commit suicide because he was trying to avoid some legal responsibilities, but he thinks that he was just being stupid, trying to manipulate and not try to really commit suicide on my examination the patient denies suicidal ideation. On evaluation the patient is quite lethargic, but calm and superficially cooperative. She says that she was just "caught up in the moment." The patient at times tearful , she says that she has been depressed due to her current medical and legal situation. The patient states that she prefers not to talk about those problems at this moment. She was able to contract for safety in the unit. Disoriented 3. Does not seem to be in acute withdrawal. Today: The patient was seen for psychiatric evaluation in the recreational area of 2600. The patient seems to be quite isolated, withdrawn and just superficially engageable in a conversation. The patient says that she has been thinking in the consequences of her recent actions and she is almost very short she is going to intermediate. Reports that she was just caught with the position of illegal opiates and she is going to be charged for that. she states that this fear to be in intermediate was the responsible of her recent suicidal attempt. However , she says that she is ready to face responsibilities, she feels more relaxed. She reports depression, but denies hopelessness and helplessness, she does report low level of appetite, poor sleep at night, poor energy, generalized pessimism. She denies suicidal enemas ideation at this moment. She denies visual and auditory hallucinations. The patient is oriented 3. She reports that in the past trazodone 100 mg at night has been quite helpful with depression and also with insomnia. No agitation, no aggressive behavior has been reported. But the patient has been quite isolated in the unit PPHx: psychiatric history of bipolar depression, substance dependence including cocaine, marijuana, alcohol, benzodiazepines, 3 previous psychiatric hospitalizations, previous suicide attempts, extensive history of self-cutting behavior without SI, she has been seeing a couple times here in [facility] on the [employer] act clear PMHx: Asthma and collided Substance Hx: Patient reports daily use of marijuana, cocaine, Xanax and alcohol Family Hx: No family psychiatric history Family Hx: The patient was born and raised in [facility], woman, domiciled in [place] with her and 3 years old daughter, employed at [employer]. - Inpatient Certification I certify that the inpatient services were ordered in accordance with Medicare regulations governing the order. This includes certification that hospital inpatient services are reasonable and necessary and in the case of services not specified as inpatient-only under 42 CFR 419.22(n), that they are appropriately provided as inpatient services in accordance to with the 2-midnight benchmark under 43 CFR 412.3(e) I certify that inpatient psychiatric hospital services are medically necessary. Evaluation and treatment and/or diagnostic testing are expected to improve the patient's condition. The patient needs on a daily basis, active treatment furnished directly by or requiring the supervision of inpatient psychiatric facility personnel. Estimated Total Length of Stay (Days): 7 Plans for Post Hospital Care: Home Review of Systems Constitutional: Denies anorexia, Denies body ache(s), Denies chills, Denies daytime sleepiness, Denies excessive sweating, Denies fatigue, Denies fever(s), Denies headache(s), Denies increased appetite, Denies lack of energy, Denies malaise, Denies night sweats, Denies weakness, Denies weight gain, Denies weight loss, Denies other Eyes: Denies blind spots, Denies blurry vision, Denies bulging eyes, Denies change in vision, Denies double vision, Denies discharge, Denies dry eyes, Denies floaters, Denies irritation, Denies itchy eyes, Denies loss of vision, Denies pain, Denies requires corrective lenses, Denies sensitivity to light, Denies other Ears, Nose, Mouth, and Throat: Denies abnormal hearing, Denies bleeding gums, Denies bad breath, Denies change in voice, Denies dental pain, Denies difficulty swallowing, Denies dizziness, Denies dry mouth, Denies ear discharge , Denies ear pain, Denies facial pain, Denies headache(s), Denies hearing loss, Denies hoarseness, Denies lip swelling, Denies nosebleed, Denies mouth lesions, Denies mouth pain, Denies nasal congestion, Denies nasal discharge, Denies nasal obstruction, Denies nasal trauma, Denies neck lump, Denies neck pain, Denies nose pain, Denies pain with swallowing, Denies poor balance, Denies post nasal drip, Denies ringing in the ears, Denies sinus pain, Denies sinus pressure , Denies sore throat, Denies throat swelling, Denies tongue swelling, Denies other Cardiovascular: Denies chest pain, Denies chest pain at rest, Denies chest pain with activity, Denies excessive sweating, Denies fainting, Denies fast heart rate, Denies foot swelling, Denies generalized swelling, Denies irregular heart rhythm, Denies leg pain with activity, Denies leg sores, Denies leg swelling, Denies lightheadedness, Denies radiating jaw, neck or arm pain, Denies rapid, pounding, or irregular heartbeat, Denies shortness of breath, Denies shortness of breath with activity, Denies shortness of breath when lying down, Denies shortness of breath causing sudden awakening, Denies slow heart rate, Denies other Respiratory: Denies change in phlegm color, Denies chest congestion, Denies cough, Denies coughing up blood, Denies excessive phlegm production, Denies pain on inspiration, Denies pain with cough, Denies shortness of breath, Denies shortness of breath with activity, Denies snoring, Denies stridor, Denies wheezing, Denies other Gastrointestinal: Denies abdominal pain, Denies belching, Denies black, tarry stools, Denies bloating, Denies bright, red blood in stools, Denies change in bowel habits, Denies constant urge to pass stool, Denies change in stools, Denies coffee ground vomit, Denies constipation, Denies cramping, Denies difficulty swallowing, Denies excessive passing of gas, Denies feeling full early, Denies heartburn, Denies incontinent of stools, Denies loose stools, Denies nausea, Denies pain with swallowing, Denies vomiting, Denies vomiting blood, Denies other Genitourinary: Denies abnormal periods, Denies abnormal vaginal bleeding, Denies absent period, Denies bleeding between periods, Denies blood in urine, Denies difficulty starting urination, Denies difficulty urinating, Denies dribbling after urination, Denies frequent nighttime urination, Denies genital itching, Denies genital lesions, Denies heavy periods, Denies hot flashes, Denies light periods, Denies nipple discharge, Denies painful intercourse, Denies painful periods, Denies painful urination, Denies pelvic pain, Denies prolapse symptoms, Denies sexual problems, Denies side pain, Denies urinary incontinence, Denies urinary urgency, Denies vaginal discharge, Denies vaginal dryness, Denies vaginal odor, Denies vaginal itching, Denies other Musculoskeletal: Denies abnormal walking, Denies back pain, Denies body aches, Denies decreased muscle mass, Denies deformity, Denies joint pain, Denies joint swelling, Denies limited joint movement, Denies loss of height, Denies muscle cramps, Denies muscle weakness, Denies neck pain, Denies numbness, Denies radiating pain into limb, Denies stiffness, Denies tingling, Denies other Skin/Breast: Denies acne, Denies bleeding lesions, Denies boil, Denies breast swelling, Denies breast skin changes, Denies breast pain, Denies breast lump, Denies change in breast shape, Denies change in hair, Denies change in skin color, Denies changing lesions, Denies dry skin, Denies excessive hair growth, Denies hair loss, Denies itching, Denies lesions, Denies nail changes, Denies new lesions, Denies nipple discharge, Denies non-healing lesions, Denies redness , Denies sensitivity to light, Denies rash, Denies skin pain, Denies skin ulcer , Denies sores, Denies stretch harding, Denies unusual bruising, Denies wounds, Denies yellowing of the skin, Denies other Neurologic: Denies abnormal hearing, Denies abnormal movements, Denies abnormal speech, Denies abnormal walking, Denies behavioral changes, Denies burning sensations, Denies confusion, Denies dizziness, Denies fainting, Denies frequent falls, Denies headache(s), Denies lack of coordination, Denies localized weakness, Denies loss of vision, Denies memory loss, Denies numbness, Denies other visual disturbances, Denies radiating pain, Denies restless legs, Denies convulsions, Denies seizure-like activity, Denies sensory deficit, Denies tingling, Denies tingling/numbness/burning sensations, Denies tremor(s), Denies unsteadiness, Denies weakness, Denies other Psychiatric: Reports change in appetite, Reports depression, Reports irritability Endocrine: Denies cold intolerance, Denies excessive sweating, Denies flushing, Denies heat intolerance, Denies increased hunger, Denies increased thirst, Denies increased urination, Denies rapid, pounding, or irregular heartbeat, Denies other PMFSH - History History Provided By: Patient - Medical History Medical History: Medical History (Last Reviewed 12/25/17 @ 11:43 by HEATHER Oneill) Asthma delivery delivered Colitis Heart attack - Family History Family History: Family History (Last Updated 12/25/17 @ 16:28 by Zhou Banegas MD) Other Osteoarthritis - Tobacco History Second Hand Smoke Exposure: Yes Smoking Status: Current every day smoker Tobacco Type: Cigarettes - Alcohol History How Often Do You Have a Drink Containing Alcohol: 2 to 3 times a week - Substance Use History Substance History: Active Abuse Medications and Allergies Active Medications: Active Medications Al Hydrox/Mg Hydrox/Simethicone (Mag-Al Plus Susp Liq) 30 ml PO Q6H PRN PRN Reason: DYSPEPSIA Al Hydroxide/Mg Hydroxide (Milk Of Magnesia Liq) 30 ml PO Q12H PRN PRN Reason: Mild Constipation Bisacodyl (Dulcolax Supp) 10 mg RECTAL DAILY PRN PRN Reason: SEVERE CONSITIPATION Lactulose (Lactulose Liq) 30 ml PO DAILY PRN PRN Reason: SEVERE CONSITIPATION Senna/Docusate Sodium (Lynn-Colace) 1 tab PO BID [facility] Sennosides (Senokot) 17.2 mg PO Q12H PRN PRN Reason: Moderate Constipation Trazodone HCl (Desyrel) 50 mg PO HS PRECIOUS Allergies Allergy/AdvReac Type Severity Reaction Status Date / Time pineapple Allergy Severe Anaphylaxis Verified 12/25/17 11:56 Results - ABG Attestation: I personally reviewed and interpreted this ABG as follows: - ECG Attestation: I personally reviewed and interpreted this ECG as follows: Exam Vital signs: Vital Signs 12/26/17 18:36 12/27/17 06:00 Temperature 97.4 F L 98.7 F Pulse Rate 60 56 L Respiratory Rate 18 17 Blood Pressure 149/66 H 106/65 Pulse Oximetry 100 98 Intake & Output 12/26/17 12/27/17 12/27/17 18:59 06:59 18:59 Weight 55.6 kg Other: Weight On Admission 55.6 kg Narrative: No tremors, no EPS, no stiffness, no withdrawal symptoms, no increased agitation or psychomotor retardation - Constitutional no acute distress, mild distress - Routine HEENT Exam Head: Present: normocephalic, atraumatic Eye: Present: EOMI, PERRL ENT: Present: mucous membranes moist Mental Status Examination Appearance: Appropriate Consciousness: Alert Orientation: x4 Motor Activity: Normal gait Speech: Unremarkable Language: Adequate Fund of Knowledge: Adequate Attention and Concentration: Adequate Memory: Unremarkable Mood: Sad Affect: Sad Thought Process & Associations: Intact Thought Content: Appropriate Hallucination Type: None Delusion Type: None Suicidal Ideation: No Suicidal Plan: No Suicidal Intention: No Homicidal Ideation: No Homicidal Plan: No Homicidal Intention: No Insight: Poor Judgment: Poor Assessment and Plan - Assessment (1) Acute adjustment disorder Code(s): F43.20 - Adjustment disorder, unspecified Status: Acute (2) Acute adjustment disorder with depressed mood Code(s): F43.21 - Adjustment disorder with depressed mood Status: Acute - Plan Plan: On psychiatric evaluation today I see a patient that is quite irritable, superficially cooperative, minimizing recent suicidal attempt/ideation, and symptoms of depression. Patient has a very contributory and vague excuse about recent suicide attempt, stating that she just wanted to avoid legal responsibility which is not congruent with the lethality of her overdose. Her does state that she has been depressed and she was quite serious. The patient has an extensive history of polysubstance dependence including Xanax, alcohol, cocaine and marijuana, poor impulse control, previous psychiatric hospitalizations, suicide attempts, self cutting behavior and for this reason she has an elevated risk of danger to self. Patient will be admitted in psychiatry for stabilization, safety and to provide treatment for depression. Transfer patient to psychiatry was medically stable. Continue CIWA. We will start trazodone 50 mg at bedtime for depression and insomnia. Justification for Continued Inpatient Stay: Continue psychiatric admission for stabilization
[2017-12-27] MEDS: Senna/Docusate Sodium 8.6/50 MG Tablet PO SCH (21:42)
[2017-12-27] MEDS: traZODone 50 MG Tablet PO SCH (21:42)
[2017-12-28] MEDS: Senna/Docusate Sodium 8.6/50 MG Tablet PO SCH ×2 (09:32→21:06)
[2017-12-28 09:55] LABS: Calcium 8.2 mg/dL (8.5-10.1); Carbon Dioxide 24.8 meq/L (21.0-32.0); Potassium 3.4 meq/L (3.5-5.1)
[2017-12-28 09:58] LABS: Chol/HDL Ratio 2.65 Ratio; HDL Cholesterol 53.9 mg/dL (40.0-60.0)
--- NOTE | 2017-12-28 14:50 | P.PNPSY ---
Subjective Remarks: This is a request for second opinion. Admission note was reviewed and I agree with the history. Patient was seen and case was discussed with nursing. Patient is oppositional and argumentative during the interview. She minimizes her overdose and claims it was to avoid criminal charges. We had an extended conversation about the [employer] act and the process of an involuntary petition. Patient admitted to a history of bipolar disorder and not being on medication. Patient also has a history of previous suicide attempts and self cutting behavior. Mental Status Examination Appearance: Appropriate Consciousness: Alert Orientation: x4 Motor Activity: Normal gait Speech: Unremarkable Language: Adequate Fund of Knowledge: Adequate Attention and Concentration: Adequate Memory: Unremarkable Mood: Angry, Irritable Affect: Blunt Thought Process & Associations: Intact Thought Content: Appropriate Hallucination Type: None Delusion Type: None Suicidal Ideation: No Suicidal Plan: No Suicidal Intention: No Homicidal Ideation: No Homicidal Plan: No Homicidal Intention: No Insight: Poor Judgment: Poor Assessment and Plan - Assessment (1) Acute adjustment disorder Code(s): F43.20 - Adjustment disorder, unspecified Status: Acute (2) Acute adjustment disorder with depressed mood Code(s): F43.21 - Adjustment disorder with depressed mood Status: Acute - Plan Plan: I agree with the first opinion to continue petition. Criteria include overdose and in the setting of her psychiatric history we cannot rule out at this time that this was not a suicide attempt Justification for Continued Inpatient Stay: Patient would decompensate in a less restrictive setting
[2017-12-28] MEDS: traZODone 50 MG Tablet PO SCH (21:06)
--- NOTE | 2017-12-29 13:11 | P.DSPSY ---
Psychiatry Discharge Summary Inpatient Psychiatric care?: Yes Advance Directives: No Mental Health Advance Directive: No Health Care Proxy: No - Admission Admission Date: December 26, 2017 18:23 - Admission Diagnosis (1) Polysubstance dependence Code(s): F19.20 - Other psychoactive substance dependence, uncomplicated (2) Acute adjustment disorder with depressed mood Code(s): F43.21 - Adjustment disorder with depressed mood Brief History: 12/29/2007 in the medical floor my initial encounter with the patient: The patient is a 32-year-old woman, domiciled in [place] with her and 3 years old daughter, employed at [employer], with psychiatric history of bipolar depression, substance dependence including cocaine, marijuana , alcohol, benzodiazepines, 3 previous psychiatric hospitalizations, previous suicide attempts, extensive history of self-cutting behavior without SI, she has been seeing a couple times here in [facility] on the [facility] act clear, documentation reviewed, medical history of asthma and colitis, arrives via EMS under [facility] act. According to the [facility] act report the deputy observed the patient was unable to stand up without assistance, hold her head up, and keep her eyes open. The patient stated she saw no point in trying because she was just going to end up back in shelter and wanted to kill herself. The patient advised the officer that she had taken 12 Xanax. According to the triage note the patient had admitted to taking 12 Xanax, 2 oxycodone, 40 beers in the past 12-24 hours. Chart was reviewed. I got collateral information from her , , who states that his tried to commit suicide because he was trying to avoid some legal responsibilities, but he thinks that he was just being stupid, trying to manipulate and not try to really commit suicide on my examination the patient denies suicidal ideation. On evaluation the patient is quite lethargic, but calm and superficially cooperative. She says that she was just "caught up in the moment." The patient at times tearful , she says that she has been depressed due to her current medical and legal situation. The patient states that she prefers not to talk about those problems at this moment. She was able to contract for safety in the unit. Disoriented 3. Does not seem to be in acute withdrawal. Today: The patient was seen for psychiatric evaluation in the recreational area of 2600. The patient seems to be quite isolated, withdrawn and just superficially engageable in a conversation. The patient says that she has been thinking in the consequences of her recent actions and she is almost very short she is going to [facility]. Reports that she was just caught with the position of illegal opiates and she is going to be charged for that. she states that this fear to be in [facility] was the responsible of her recent suicidal attempt. However , she says that she is ready to face responsibilities, she feels more relaxed. She reports depression, but denies hopelessness and helplessness, she does report low level of appetite, poor sleep at night, poor energy, generalized pessimism. She denies suicidal enemas ideation at this moment. She denies visual and auditory hallucinations. The patient is oriented 3. She reports that in the past trazodone 100 mg at night has been quite helpful with depression and also with insomnia. No agitation, no aggressive behavior has been reported. But the patient has been quite isolated in the unit PPHx: psychiatric history of bipolar depression, substance dependence including cocaine, marijuana, alcohol, benzodiazepines, 3 previous psychiatric hospitalizations, previous suicide attempts, extensive history of self-cutting behavior without SI, she has been seeing a couple times here in [facility] on the [facility] act clear PMHx: Asthma and collided Substance Hx: Patient reports daily use of marijuana, cocaine, Xanax and alcohol Family Hx: No family psychiatric history Family Hx: The patient was born and raised in [facility], woman, domiciled in [facility] with her and 3 years old daughter, employed at [employer]. Tobacco Use In Past 30 Days: Yes How Often Do You Have a Drink Containing Alcohol: 2 to 3 times a week Hospital Course: The patient was admitted in psychiatry after overdosing with multiple medications. The patient was admitted initially in 2700 then transferred to 2600. Initially the patient was stated that she overdosed in order to avoid legal consequences of being caught with illegal drugs in her car. She says that she already had too many problems in order to add another one. She was clear that she did not wanted to kill herself, but her was not. For this reason the patient was admitted for longitudinal observation. During her stay in the hospital the patient was kind of oppositional, argumentative, requested to be discharged. She repeatedly says that she just wanted to avoid legal consequences and she does not want to go back to [facility]. Patient reports that she has a DCF case, she has been in problems before due to polysubstance use, but now she is clear about facing her situation at the moment of discharge the patient denies depressive symptoms, denies anxiety, denies marcos and psychosis. I have dedicated several minutes to educate the patient about the importance of avoiding psychoactive illegal drugs. She was given a referral to continue in outpatient treatment for bipolar disorder and also for substance abuse. - Discharge Discharge Date: 12/29/17 Discharge Disposition: Home - Discharge Time > 30 minutes Mental Status Examination Appearance: Appropriate Consciousness: Alert Orientation: x4 Motor Activity: Normal gait Speech: Unremarkable Language: Adequate Fund of Knowledge: Adequate Attention and Concentration: Adequate Memory: Unremarkable Mood: Angry, Irritable Affect: Blunt Thought Process & Associations: Intact Thought Content: Appropriate Hallucination Type: None Delusion Type: None Suicidal Ideation: No Suicidal Plan: No Suicidal Intention: No Homicidal Ideation: No Homicidal Plan: No Homicidal Intention: No Insight: Poor Judgment: Poor Discharge/Advance Care Plan - Results Vital Signs: Last Vital Signs Temp 98.3 F 12/29/17 06:26 Pulse 42 L 12/29/17 06:26 Resp 16 12/29/17 06:26 BP 82/51 L 12/29/17 06:26 Pulse Ox 100 12/29/17 06:26 Lab Results: Laboratory Results Hemoglobin A1c 5.0 % (4.3-6.0) 12/28/17 08:29 Triglycerides 101 mg/dL (42-150) 12/28/17 08:29 Cholesterol 143 mg/dL (120-200) 12/28/17 08:29 LDL Cholesterol, Calc 69 mg/dL (0-99) 12/28/17 08:29 HDL Cholesterol 53.9 mg/dL (40.0-60.0) 12/28/17 08:29 Summary of Procedures: None Pending Results: None - Medications Number of antipsychotic medications at discharge: 0 - Discharge Care Plan Goals to Promote Your Health: * To prevent worsening of your condition and complications * To maintain your health at the optimal level Directions to Meet Your Goals: Take your medications as prescribed Follow your dietary instruction Follow activity as directed Keep your appointments as scheduled Take your immunizations and boosters as scheduled If your symptoms worsen call your PCP, if no PCP go to Urgent Care Center or Emergency Room For 25/11 questions related to your inpatient stay or results of tests pending at discharge, please contact Dr. Nigel Hernandez MD at [phone] Smoking is Dangerous to Your Health. Avoid second hand smoking
== END 2017-12-29 13:16 | disposition home or self-care (01) ==
LOC: H260 18:23
PROVIDERS: ADMIT Psychiatry & Neurology Psychiatry; ATTEND Psychiatry & Neurology Psychiatry